=== PATIENT | female | born 2005 | race Two or more races ===

== ENCOUNTER 2024-04-02 16:38 | Emergency (ER) | payer MEDICAID, SELFPAY ==
[2024-04-02 16:43] VITALS: BP 106/74; PULSE 68; TEMP 36.6; O2SAT 98; BMI 18.7
--- NOTE | 2024-04-02 16:53 | ED.GENADUL1 ---
HPI HPI - General Adult General Chief complaint: Extremity Problem, Nontraumatic Stated complaint: SHRUNKEN BREAST AN NAUSEA Time Seen by Provider: 04/02/24 16:46 Source: patient Mode of arrival: walk-in Limitations: no limitations History of Present Illness HPI narrative: Patient is a 18-year-old female who presents to the ER with her boyfriend with concerns of her left breast appearing smaller than her right, she has noticed a currency exchange specialist the past 2 days. She denies any breast pain or drainage or discharge. She denies any rash. She recently had Implanon control removed from her skin a month and a half ago. Her last menstrual cycle ended on March 16. Patient has been sexually active. She denies any chest pain or shortness of breath. Patient admits to increased fatigue. She denies any spontaneous or skin changes to her breast. Associated symptoms: Reports other (fatigue, had swelling in her right anterior cervical lymph node chain last week that resolved); Denies fever/chills Treatments prior to arrival: Reports none Related Data Previous Rx's ?Medication ?Instructions ?Recorded cephalexin 500 mg capsule 500 mg PO BID 3 days #6 caps 04/02/24 Allergies Allergy/AdvReac Type Severity Reaction Status Date / Time No Known Drug Allergies Allergy Verified 04/02/24 16:46 Opioid HPI Opioid Management Most Recent Opioid Data: Last Pain Scale 0 04/02/24 16:47 Review of Systems ROS Constitutional Reports: fatigue; Denies: fever, chills or change in weight Eyes Denies: change in vision or blurry vision Ears, nose, mouth, and throat Reports: other (+ swelling right anterior neck, resolved. ); Denies: throat pain, neck pain or throat swelling Cardiovascular Denies: chest pain or palpitations Respiratory Denies: shortness of breath, cough or wheezing Gastrointestinal Denies: abdominal pain, nausea, vomiting or constipation Genitourinary Denies: painful urination, urinary frequency, urinary urgency or blood in urine Musculoskeletal Denies: back pain, neck pain, extremity pain, extremity swelling or joint pain Integumentary/Breast Denies: rash, itching, redness or skin pain Neurological Denies: headache or numbness in extremities Psychiatric Denies: anxiety, mood swings or panic attacks Endocrine Denies: excessive urination Hematologic/Lymphatic Denies: easy bruising Allergic/Immunologic Denies: hives, throat swelling or tongue swelling Exam Narrative Exam Narrative: Nurses notes and vital signs reviewed and patient is not hypoxic. General: The patient appears well and in no apparent distress. Patient is resting comfortably on cart. Skin: Warm, dry, no pallor noted. No evidence of rash Head: Normocephalic, atraumatic Neck: Supple, trachea mid-line, no tenderness, no lymphadenopathy, patient notes swelling in her right anterior neck last week that has since resolved. Eye: Pupils are equal, round and reactive to light, EOMI Ears, Nose, Mouth, and Throat: TM are clear, normal light reflex, oral mucosa is moist, no posterior oropharynx erythema or hypertrophy, uvula is mid-line Cardiovascular: Regular Rate and Rhythm Respiratory: Patient is in no distress, no accessory muscle use, lungs are clear to auscultation, no wheezing, rales or rhonchi. Chest Wall: no tenderness, patient self reports breast nontender to palpation. Visual inspection not performed as patient denies rash, only notes size discrepancy recently appreciated 2 days ago that the left breast appears smaller than it did previously when comparison for symmetry. She denies the right breast appearing larger. States she notices a difference when wearing her bra. Back: non-tender, no CVA tenderness Musculoskeletal: normal ROM, no tenderness, no swelling GI: Normal bowel sounds, no tenderness to palpation, no masses appreciated. No rebound, guarding, or rigidity noted. Neurological: A&O x4 Psychiatric: Cooperative Constitutional Vital Signs, click to edit/add: Last Vital Signs Temp 97.9 F 04/02/24 16:43 Pulse 68 04/02/24 16:43 Resp 18 04/02/24 16:43 BP 106/74 04/02/24 16:43 Pulse Ox 98 04/02/24 16:43 O2 Del Method Room Air 04/02/24 16:43 Course Vital Signs Vital signs: Vital Signs Temperature 97.9 F 04/02/24 16:43 Pulse Rate 68 04/02/24 16:43 Respiratory Rate 18 04/02/24 16:43 Blood Pressure 106/74 04/02/24 16:43 Pulse Oximetry 98 04/02/24 16:43 Oxygen Delivery Method Room Air 04/02/24 16:43 Temperature 97.9 F 04/02/24 16:43 Pulse Rate 68 04/02/24 16:43 Respiratory Rate 18 04/02/24 16:43 Blood Pressure 106/74 04/02/24 16:43 Pulse Oximetry 98 04/02/24 16:43 Oxygen Delivery Method Room Air 04/02/24 16:43 Medical Decision Making MDM Narrative Medical decision making narrative: Patient presents with concerns of left breast appearing smaller than her right. She denies pain or discomfort, denies fever. She recently stopped a implanted control and has had 1 period since this occurred. Patient notes she has also been fatigued. She denies any chest pain or shortness of breath. Patient had solitary lymph node swelling in her neck that is since resolved, there is no supra or infra clavicular lymphadenopathy. Patient appears in no distress. She denies any visual disturbance or .. Discussed laboratory studies, patient noted to have some anemia. She is not currently on her menstrual cycle, we discussed diet at the bedside and she may be missing iron rich foods. She will focus on these recommend prompt follow-up with family doctor to get additional outpatient evaluation consider iron supplementation. Patient will be placed on Keflex as she does note some urgency and frequency with urination but denies pain. She denies any pelvic pain or vaginal discharge. We discussed that the urine culture is pending but may be contaminated. Patient agreeable to antibiotic as she does not have immediate follow-up plans with PCP. We discussed her test being negative and mono and thyroid within normal limits. We discussed her concern with breast asymmetry with her left breast appearing smaller and she will follow this up with her family doctor/[employer]. The patient is to followup with primary care physician in next 2-3 days or to return to the emergency department should any of the signs or symptoms worsen or new symptoms develop. Patient had questions answered. The patient agrees with the following Diagnosis and Treatment plan and the patient will be discharged home. [employer]PER[employer] VISIT, PHYSICIAN ATTESTATION: Based on the medical record the care appears appropriate. ? Lab Data Labs: Lab Results 04/02/24 Range/Units 16:50 WBC 9.0 (4.0-11.0) 10^3/uL RBC 4.51 (4.20-5.40) 10^6/uL Hgb 10.8 L (12.0-16.0) g/dL Hct 32.2 L (36.0-48.0) % MCV 71.4 L (81.0-99.0) fL MCH 23.9 L (26.7-34.0) pg MCHC 33.5 (29.9-35.2) g/dL RDW 16.0 H (11.0-15.0) % Plt Count 357 (150-450) 10^3/uL MPV 10.6 (9.5-13.5) fL Neut % (Auto) 63.0 (43.0-75.0) % Lymph % (Auto) 28.8 (20.5-60.0) % [place] % (Auto) 6.7 (1.7-12.0) % Eos % (Auto) 0.7 L (0.9-7.0) % Baso % (Auto) 0.7 (0.2-2.0) % Neut # (Auto) 5.7 (1.4-6.5) 10^3/uL Lymph # (Auto) 2.6 (1.2-3.8) 10^3/uL [place] # (Auto) 0.6 (0.3-0.8) 10^3/uL Eos # (Auto) 0.1 (0.0-0.7) 10^3/uL Baso # (Auto) 0.1 (0.0-0.1) 10^3/uL Abs Immat Gran (auto) 0.01 (0.00-0.03) 10^3/uL Imm/Tot Granulo (auto) 0.1 (0.0-0.5) % TSH & Free T4 Interp 2.041 (0.358-3.740) uIU/mL HCG, Quant <1 mIU/mL Urine Color Lt. yellow (YELLOW) Urine Clarity Clear (CLEAR) Urine pH 6.5 (5.0-9.0) Ur Specific [place] 1.020 (1.005-1.025) Urine Protein Negative (NEG/TRACE) mg/dL Urine Glucose (UA) Negative (NEGATIVE) mg/dL Urine Ketones Negative (NEGATIVE) mg/dL Urine Occult Blood Negative (NEGATIVE) Urine Nitrite Negative (NEGATIVE) Urine Bilirubin Negative (NEGATIVE) Urine Urobilinogen 0.2 (0.2-1.0) EU/dL Ur Leukocyte Esterase Trace A (NEGATIVE) Urine RBC 2-5 A (0-2) #/HPF Urine WBC 2-5 A (NONE SEEN) #/HPF Ur Squamous Epith Cells Few A (NONE/RARE) #/LPF Urine Crystals None seen (None Seen) #/HPF Urine Bacteria Small A (NONE SEEN) #/HPF Urine Casts None seen (NONE SEEN) #/LPF Urine Mucus Trace A (NONE SEEN) Ur Culture Indicated? Yes Monoscreen Negative (NEGATIVE) Discharge Plan Discharge Stand Alone Forms: Portal Instructions Chief Complaint: Extremity Problem, Nontraumatic Clinical Impression: Anemia, UTI (urinary tract infection), Concern about appearance of breast Patient Disposition: Home, Self-Care Time of Disposition Decision: 17:51 Condition: Good Prescriptions / Home Meds: New cephalexin 500 mg capsule 500 mg PO BID 3 Days Qty: 6 0RF Print Language: Upper Sorbian Instructions: Urinary Tract Infection in Women (DC), Iron Rich Diet (ED), Anemia (ED) Referrals: Randall Mitchell DO [Physician] - 1 week Sarah Lugo NP [Nurse Practitioner] - As soon as possible CARMELINA MANZANO [Nurse Practitioner] - As soon as possible
[2024-04-02 17:08] LABS: Basophils Absolute Auto 0.1 10^3/uL (0.0-0.1); Basophils Percent Auto 0.7 % (0.2-2.0); Eosinophils Absolute Auto 0.1 10^3/uL (0.0-0.7); Eosinophils Percent Auto 0.7 % (0.9-7.0); Hematocrit 32.2 % (36.0-48.0); Hemoglobin 10.8 g/dL (12.0-16.0); Immature Granulocytes Abs Auto 0.01 10^3/uL (0.00-0.03); Immature Granulocytes Pct Auto 0.1 % (0.0-0.5); Lymphocytes Absolute Auto 2.6 10^3/uL (1.2-3.8); Lymphocytes Percent Auto 28.8 % (20.5-60.0); Mean Corpuscular HGB Conc 33.5 g/dL (29.9-35.2); Mean Corpuscular Hemoglobin 23.9 pg (26.7-34.0); Mean Corpuscular Volume 71.4 fL (81.0-99.0); Mean Platelet Volume 10.6 fL (9.5-13.5); Monocytes Absolute Auto 0.6 10^3/uL (0.3-0.8); Monocytes Percent Auto 6.7 % (1.7-12.0); Neutrophils Absolute Auto 5.7 10^3/uL (1.4-6.5); Platelet Count 357 10^3/uL (150-450); Red Blood Count 4.51 10^6/uL (4.20-5.40)
[2024-04-02 17:09] LABS: Bilirubin Urine NEGATIVE (NEGATIVE); Blood Urine NEGATIVE (NEGATIVE); Clarity Urine CLEAR (CLEAR); Color Urine LT. YELLOW (YELLOW); Glucose Urine UA NEGATIVE (NEGATIVE); Ketones Urine NEGATIVE (NEGATIVE); Leukocyte Esterase Urine TRACE (NEGATIVE); Nitrite Urine NEGATIVE (NEGATIVE); Protein Urine NEGATIVE (NEG/TRACE); Urine Microscopic Indicated YES; Urobilinogen Urine 0.2 EU/dL (0.2-1.0); pH Urine 6.5 (5.0-9.0)
[2024-04-02 17:18] LABS: Internal Control Within Normal Limits; Mono Screen NEGATIVE (NEGATIVE)
[2024-04-02 17:21] LABS: Bacteria Urine SMALL #/HPF (NONE SEEN); Cast Seen? NONE SEEN #/LPF (NONE SEEN); Crystals Seen? None Seen #/HPF (None Seen); Mucus Urine TRACE (NONE SEEN); Squamous Epithelial Cell Urine FEW #/LPF (NONE/RARE)
[2024-04-02 17:22] LABS: Urine Culture Indicated YES
[2024-04-02 17:33] LABS: HCG Quantitative <1 mIU/mL; TSH W/ REFLEX FT4 2.041 uIU/mL (0.358-3.740)
[2024-04-02] MEDS: CEPHALEXIN 500 MG CAPSULE PO (17:54)
[2024-04-02 18:00] VITALS: BP 124/72; PULSE 61; O2SAT 100
== END 2024-04-02 18:01 | disposition home or self-care (01) ==
PROVIDERS: Personal Emergency Response Attendant; Emergency Provider Emergency Medicine
DX: N39.0 Urinary tract infection, site not specified (principal); D64.9 Anemia, unspecified; N64.89 Other specified disorders of breast
CPT/HCPCS: 36415; 81001; 84443; 84702; 85025; 86308; 87086; 99283

== ENCOUNTER 2024-04-07 09:36 | Outpatient (OUT) | payer MEDICAID, SELFPAY ==
[2024-04-07 10:08] LABS: Hemoglobin 11.6 g/dL (12.0-16.0); Mean Corpuscular HGB Conc 32.2 g/dL (29.9-35.2); Mean Corpuscular Hemoglobin 23.6 pg (26.7-34.0); Mean Corpuscular Volume 73.3 fL (81.0-99.0); Mean Platelet Volume 10.8 fL (9.5-13.5); Platelet Count 349 10^3/uL (150-450); Red Blood Count 4.91 10^6/uL (4.20-5.40); Red Cell Distribution Width 17.3 % (11.0-15.0)
[2024-04-07 10:22] LABS: Percent Iron Saturation 5.9 %
[2024-04-08 06:09] LABS: Vitamin B12 319 pg/mL (232-1245)
[2024-04-08 07:08] LABS: Vitamin D, 25-Hydroxy 34.7 ng/mL (30.0-100.0)
== END 2024-04-07 09:37 | disposition home or self-care (01) ==
LOC: LAB 09:36
PROVIDERS: PCP Nurse Practitioner; Visit Provider Nurse Practitioner
DX: D64.9 Anemia, unspecified (principal); R53.83 Other fatigue
CPT/HCPCS: 36415; 82306; 82607; 82746; 83540; 83550; 85027

== ENCOUNTER 2024-04-13 17:43 | Outpatient (REF) | payer MEDICAID, SELFPAY ==
--- OUTSIDE RECORDS SUMMARY | 2024-04-13 17:49 | XMS_ITS | CCD ---
Author Organization [facility] MEAT STOCK CLERK [facility] Care Team Providers [employer] Sales Agent Name Role Phone None, DO Doctor Primary Care Provider UnavailIMANI Herrmann Attending Provider [phone] Provider, [place] Attending Provider UnavailPETROS Cardenas Attending Provider PETROS Pace Attending Provider [phone] ARAM Shepherd Attending Provider PILO Hayes Attending Provider [phone] Unavailable Primary Care Provider UnavailNUNU Morrison Attending Unavailable None, DO Doctor Primary Care Provider UnavailDO Gertrudis Ware Emergency Provider [phone] Unavailable Primary Care Provider UnavailDO Gertrudis Ware Attending Provider [phone] MD Mak Stahl Attending Provider None, DO Doctor Primary Care Provider UnavailDO Gertrudis Ware Attending Provider DO Gertrudis Bates Emergency Provider MD Mak Stahl Attending Provider Provider, [place] Attending Provider UnavailMak Roper Attending Unavailable Yoana Martinez Attending Unavailable Gertrudis Bates Attending Unavailable Mak Stahl Attending Unavailable Yoana Martinez Attending Unavailable TAD LOPEZ~[id number] MOHAMUD Attending Unavailable TAD LOPEZ~[id number] MOHAMUD Referring Unavailable TAD LOPEZ~[id number] MOHAMUD Attending Unavailable LUCÍA DIAMANTE, DIAMANTE~[id number] MINGUS Attending Unavailable LUCÍA OLGA BOBBYATT~[id number] MINGUS Referring Unavailable VIRGIN RASHEED, RASHEED~[id number] VIRGIN Attending Unavailable VIRGIN RASHEED, RASHEED~[id number] VIRGIN Referring Unavailable VIRGIN RASHEED, RASHEED~[id number] VIRGIN Attending Unavailable VIRGIN RASHEED, RASHEED~[id number] VIRGIN Referring Unavailable LUIS ANGEL OLIVAS Attending Unavailable LUCÍA DIAMANTE, DIAMANTE~[id number] MINDEEJAY Attending Unavailable Medications Current Medications Medication Drug Class(es) Dates Sig (Normalized) Sig (Original) dextromethorphan hydrobromide 15 mg / guaiFENesin 400 mg / pseudoephedrine hydrochloride 60 mg oral tablet (1 source) alpha-Adrenergic Agonist, Uncompetitive C-zuptmx-M-aspartat e Receptor Antagonist, Sigma-1 Agonist Start: 01-12-2024 take 1 tablet by mouth every six hours Pseudoephedrine -Dm-Guaifenesin (Capmist Dm) 60-15-400 mg tablet Active 1 TAB ORAL Q6H January 12, 2024 12:00am Alpha (No Known Home Meds) (3 sources) Start: 02-20-2022 Alpha (No Known Home Meds) Active February 19, 2022 11:00pm Start: 02-20-2022 Alpha (No Kn own Home Meds) Active February 20, 2022 12:00am Completed/Discontinued Medications Medication Drug Class(es) Dates Sig (Normalized) Sig (Original) acetaminophen 500 mg oral capsule (5 sources) Start: 02-20-2022 take 500 mg by mouth every six hours Acetaminophen Active 500 MG ORAL Q6H February 20, 2022 12:00am Start: 02-20-2022 End: 10-29-2023 take 500 mg by mouth every six hours Acetaminophen Discontinued 500 MG ORAL Q6H February 20, 2022 12:00am October 29, 2023 7:05pm amoxicillin 500 mg oral capsule (5 sources) Penicillin-class Antibacterial Start: 09-28-2021 End: 11-03-2021 take 500 mg by mouth twice daily Amoxicillin Discontinued 500 MG ORAL TWICE A DAY 02 07September 28, 2021 1:00am November 03, 2021 3:55pm Start: 09-28-2021 End: 11-03-2021 take 500 mg by mouth twice daily Amoxicillin Discontinued 500 MG ORAL TWICE A DAY 20 September 28, 2021 1:00am November 03, 2021 3:55pm brompheniramine maleate 0.4 mg/ml / dextromethorphan hydrobromide 2 mg/ml / pseudoephedrine hydrochloride 6 mg/ml oral solution (3 sources) alpha-Adrenergic Agonist, Uncompetitive L-vgequq-M-aspartate Receptor Antagonist, Sigma-1 Agonist Start: 09-28-2021 End: 11-03-2021 take 1 mL by mouth every six hours Dcxrrcrtwspkeuw-Gplgrbtiw-Of (Bromfed Dm) 2-30-10 mg/5 mL syrup Discontinued 10 ML ORAL Q6H 473 September 28, 2021 1:00am November 03, 2021 3:56pm Brompheniramine-Ps eudoeph-Dm (Bromfed Dm) 2-30-10 mg/5 mL syrup (2 sources) Start: 09-28-2021 End: 11-03-2021 take 1 mL by mouth every six hours Tuhtfnsuksguybi-Hlcdaqsjc-Hw (Bromfed Dm) 2-30-10 mg/5 mL syrup Discontinued 10 ML ORAL Q6H 473 September 28, 2021 1:00am November 03, 2021 3:56pm cephalexin 500 mg oral capsule (5 sources) Cephalosporin Antibacterial Start: 11-03-2021 End: 11-26-2021 take 500 mg by mouth four times daily Cephalexin Discontinued 500 MG ORAL FOUR TIMES DAILY 40 November 03, 2021 1:00am November 26, 2021 1:34pm Start: 11-03-2021 End: 11-26-2021 take 500 mg by mouth four times daily Cephalexin Discontinued 500 MG ORAL FOUR TIMES DAILY 40 November 03, 2021 1:00am November 26, 2021 1:34pm colistin 3 mg/ml / hydrocortisone 10 mg/ml / neomycin 3.3 mg/ml / thonzonium bromide 0.5 mg/ml otic suspension (3 sources) Aminoglycoside Antibacterial, Corticosteroid Start: 06-05-2020 End: 09-28-2021 Ssacoilz-Zgjlkq-St-Thonzoniu m (Cortisporin-Tc) 3.3-3-10-0.5 mg/mL drops,suspension Discontinued 3 DROP EAR-RIGHT FOUR TIMES DAILY June 05, 2020 12:00am September 28, 2021 3:22pm doxycycline hyclate 100 mg oral capsule (5 sources) Tetracycline-clas s Drug Start: 06-05-2020 End: 09-28-2021 take 100 mg by mouth twice daily Doxycycline Hyclate Discontinued 100 MG ORAL TWICE A DAY 02 07June 05, 2020 12:00am September 28, 2021 3:22pm Start: 06-05-2020 End: 09-28-2021 take 100 mg by mouth twice daily Doxycycline Hyclate Discontinued 100 MG ORAL TWICE A DAY 02 07June 05, 2020 12:00am September 28, 2021 3:22pm Norgestimate-Ethinyl Estradiol (3 sources) Progestin, Estrogen Start: 01-20-2022 End: 02-20-2022 take 1 tablet by mouth once daily Norgestimate-Ethinyl Estradiol Discontinued TAB ORAL DAILY January 20, 2022 12:00am February 20, 2022 2:16pm Start: 01-20-2022 End: 02-20-2022 take 1 tablet by mouth once daily Norgestimate-Ethinyl Estradiol Discontinued TAB ORAL DAILY January 19, 2022 11:00pm February 20, 2022 1:16pm hydrocortisone 10 mg/ml topical cream (5 sources) Corticosteroid Start: 11-26-2021 End: 01-20-2022 Hydrocortisone (Anti-Itch (Hc)) 1 % cream Discontinued 1 APPLIC TOPICAL Bedtime 28.35 November 26, 2021 12:00am January 20, 2022 11:10am Start: 11-26-2021 End: 01-20-2022 Hydrocortisone (Anti-Itch (H c)) 1 % cream Discontinued 1 APPLIC TOPICAL Bedtime 28.35 November 26, 2021 12:00am January 20, 2022 11:10am ibuprofen 400 mg oral tablet (5 sources) Nonsteroidal Anti-inflammatory Drug Start: 02-20-2022 End: 10-29-2023 take 400 mg by mouth every eight hours Ibuprofen Discontinued 400 MG ORAL Q8H February 20, 2022 12:00am October 29, 2023 7:05pm 12 hr loratadine 5 mg / pseudoephedrine sulfate 120 mg extended release oral tablet (2 sources) alpha-Adrenergic Agonist Start: 10-29-2023 End: 01-12-2024 take 1 tablet by mouth every twelve hours, then take 1 tablet by mouth every twelve hours Loratadine-Pseudo ephedrine (Loratadine-D) 5-120 mg tablet extended release 12 hr Discontinued 1 TAB ORAL Q12H October 29, 2023 1:00am January 12, 2024 2:41pm Hqqyinju-Pdaapp-Et-T honzonium (Cortisporin-Tc) 3.3-3-10-0.5 mg/mL drops,suspension (2 sources) Start: 06-05-2020 End: 09-28-2021 Gkfcazte-Lfdgze-N c-Thonzonium (Cortisporin-Tc) 3.3-3-10-0.5 mg/mL drops,suspension Discontinued 3 DROP EAR-RIGHT FOUR TIMES DAILY June 05, 2020 12:00am September 28, 2021 3:22pm Norgestimate-Ethinyl Estradiol (2 sources) Start: 01-20-2022 End: 02-20-2022 take 1 tablet by mouth once daily Norgestimate-Ethi nyl Estradiol Discontinued TAB ORAL DAILY January 20, 2022 12:00am February 20, 2022 2:16pm ondansetron 4 mg disintegrating oral tablet (11 sources) Serotonin-3 Receptor Antagonist Start: 02-20-2022 take 4 mg by mouth every eight hours Ondansetron Active 4 MG ORAL Q8H 14 February 20, 2022 12:00am Start: 02-20-2022 End: 10-29-2023 take 4 mg by mouth every eight hours Ondansetron Discontinued 4 MG ORAL Q8H 14 February 20, 2022 12:00am October 29, 2023 7:06pm Start: 01-20-2022 End: 02-20-2022 take 4 mg by mouth every six hours Ondansetron Discontinued 4 MG ORAL Q6H January 20, 2022 12:00am February 20, 2022 2:16pm Start: 01-20-2022 End: 02-20-2022 take 4 mg by mouth every six hours Ondansetron Discontinued 4 MG ORAL Q6H January 20, 2022 12:00am February 20, 2022 2:16pm phenol 14 mg/ml mucosal spra y (10 sources) Start: 02-20-2022 End: 10-29-2023 Phenol (Chloraseptic Throat Burr) 1.4 % aerosol,spray Discontinued 3 SPRAY MUCOUS MEM Q4H February 20, 2022 12:00am October 29, 2023 7:07pm Start: 02-20-2022 Phenol (Chlora septic Throat Burr) 1.4 % aerosol,spray Active 3 SPRAY MUCOUS MEM Q4H February 20, 2022 12:00am Start: 09-28-2021 End: 11-03-2021 Phenol (Chloraseptic Throat Burr) 1.4 % aerosol,spray Discontinued 4 SPRAY MUCOUS MEM Q4H September 28, 2021 1:00am November 03, 2021 3:56pm Start: 09-28-2021 End: 11-03-2021 Phenol (Chloraseptic Throat Burr) 1.4 % aerosol,spray Discontinued 4 SPRAY MUCOUS MEM Q4H September 28, 2021 1:00am November 03, 2021 3:56pm terbinafine 250 mg oral tablet (5 sources) Allylamine Antifungal Start: 11-26-2021 End: 02-20-2022 take 250 mg by mouth three times daily Terbinafine Hcl Discontinued 250 MG ORAL THREE TIMES A DAY November 26, 2021 12:00am February 20, 2022 2:16pm Problems Active Problems Problem Classification Problem Date Documented Da te Episodic/Chronic Acquired foot deformities (2 sources) Bunionette of right foot; Translations: [Bunion] Episodic Alcohol-related disorders (1 source) Alcohol abuse with intoxication, unspecified; Translations: [Alcohol abuse with intoxication, unspecified] Onset: 09-17-2023 Chronic Allergic reactions (7 sources) Inflammatory dermatosis; Translations: [Dermatitis, unspecified] Episodic Fever of unknown origin (2 sources) Fever, unspecified; Translations: [Fever, unspecified] Episodic Immunizations and screening for infectious disease (5 sources) Suspected disease caused by 2019-nCoV; Translations: [Encounter by telehealth for suspected COVID-19] 2020 Episodic Intestinal infection (7 sources) Viral gastroenteritis; Translations: [Viral intestinal infection, unspecified] Episodic Other lower respiratory disease (2 sources) Cough; Translations: [New onset cough] Episodic Other nervous system disorders (2 sources) Tremor, unspecified; Translations: [Abnormal involuntary movements] Episodic Other skin disorders (5 sources) Ingrowing toenail (excluding great toe); Translations: [Ingrowing nail] 11-03-2021 Episodic Other skin disorders (2 sources) Ingrowing nail; Translations: [Ingrowing nail] Episodic Residual codes; unclassified (1 source) Chill; Translations: [Chills (without fever)] 09-28-2023 Episodic Skin and subcutaneous tissue infections (7 sources) Cellulitis; Translations: [Cellulitis, unspecified] Episodic Unclassified (1 source) Low back pain, unspecified; Translations: [Low back pain, unspecified] Onset: 02-04-2024 Past or Other Problems Problem Classification Problem Date Documented Date Episodic/Chronic Administrative/social admission (1 source) Special examination status; Translations: [Encounter for examination for participation in sport] Onset: 02-03-2017 02-03-2017 Episodic Diseases of mouth; excluding dental (1 source) Sialoadenitis, unspecified; Translations: [Sialoadenitis, unspecified] Onset: 07-03-2023 Episodic Disorders of teeth and jaw (1 source) Periapical abscess without sinus; Translations: [Periapical abscess without sinus] Onset: 11-19-2023 Episodic Genitourinary symptoms and ill-defined conditions (1 source) Dysuria; Translations: [Dysuria] Onset: 11-19-2023 Episodic Nausea and vomiting (4 sources) Nausea with vomiting, unspecified; Translations: [Nausea with vomiting] Onset: 09-28-2023 Episodic Other upper respiratory disease (1 source) Nasal congestion; Translations: [Nasal congestion] Onset: 10-29-2023 Episodic Other upper respiratory infections (14 sources) Acute upper respiratory infection, unspecified; Translations: [Acute upper respiratory infections of unspecified site] Onset: 07-03-2023 Episodic Residual codes; unclassified (1 source) Chills (without fever); Translations: [Chills (without fever)] Onset: 09-28-2023 Episodic Urinary tract infections (1 source) Acute cystitis without hematuria; Translations: [Acute cystitis without hematuria] Onset: 11-19-2023 Episodic Viral infection (3 sources) Viral infection, unspecified; Translations: [Unspecified viral infection] Onset: 09-28-2023 Episodic Results Test Name Value Interpretation Reference Range Facility Rapid PMPP-ExK-5tw 4 SARS-CoV-2 (COVID-19) RNA KEITH+probe Ql (Unsp spec) Negative Normal Negative [facility] Comment on above: Order Comment: Speci men Type: Unknown Relevant Clinical Information: body aches sore throat and cough Ordering Facility: [facility] Address: , , Result Comment: The sensitivity of the assay is dependent on the quality of the specimen collected for testing. A dry swab must be used for testing; swabs placed in viral transport media cannot be used. The assay is performed on the [employer] instrument utilizing isothermal nucleic acid amplification technology. Results are for the identification of severe acute respiratory syndrome coronavirus 2 nucleic acid, SARS-CoV-2 RNA, which is generally detectable in respiratory samples during the acute phase of infection. Positive results are indicative of the presence of SARS-CoV-2 RNA; clinical correlation with patient history and other diagnostic information is necessary to determine patient infection status. Positive results do not exclude the possibility of co-infection with other viral or bacterial infections. Negative results should be treated as presumptive and, if inconsistent with clinical signs and symptoms or necessary for patient management, should be tested with different molecular tests. This test has been authorized by FDA under an Emergency Use Authorization (EUA). This test is only authorized for the duration of time the declaration that circumstances exist justifying the authorization of the emergency use of in vitro diagnostic tests for detection of SARS-CoV-2 virus and/or diagnosis of COVID-19 infection under section 564(b)(1) of the Act, 21 U.S.C. 360bbb-3(b)(1), unless the authorization is terminated or revoked sooner. Performed By: #### P OCCOV #### [facility] CLIA [id number] Rapid Strep A Screen POCon 0 01-12-2024 S. pyogenes Ag IA Ql (Unsp spec) Negative Normal Negative [facility] Comment on above: Order Comment: Speci men Type: Unknown Relevant Clinical Information: body aches sore throat and cough Ordering Facility: [facility] Address: , , Performed By: #### P OCSTREP #### [facility] CLIA [id number] Urgent Care Noteon 4 Urgent Care Note [facility]ly [facility], [facility] C[address] [place] [address] Urgent Care Note Signed Patient: Mellisa Eason MR#: [id number] : 2005 Acct: [id number] Age/Sex: 18 / F Loc: [facility]. Date of Service: 01/12/[address]: Yoana Martinez CNP cc: None,Doctor D.O. Intake Vital Signs ([facility]) 01/12/24 14:41 Height 1.63 m Weight 39.2 kg BMI 14.8 BP 123/78 Respiration 18 Pulse 88 Temp 98.2 F Temp Source Oral Pulse Oximetry (%) 100 Oxygen Delivery Method Room Air Intake Visit Reasons: body aches sore throat and cough Is patient in acute pain: Yes (Body aches and sore throat) Allergies No Known Allergies Allergy (Verified 01/12/24 14:41) Medications - Last Reconciled 01/12/24 by Betzaida Friend LPN History History 0 Elective abortions Para Spontaneous abortions Hx # Term Pregnancies Ectopic pregnancies Hx # Pregnancies Multiple births Specific Travel Risk - COVID-19 Travel from high risk country; contact w/ high risk person(s): No COVID-19 Symptoms: Yes COVID-19 Symptoms experienced: Fatigue, Muscle/Body Aches, Sore Throat, Congestion/Runny Nose and Headache PHQ-2/9 . Over the last 2 weeks, how often have you been bothered by any of the following problems? 1. Little interest or pleasure in doing things: not at all 2. Feeling down, depressed, or hopeless: not at all PHQ-2: Total score: 0 Depression Screening Performed-Adult (age 14 and older): Yes Depression Screening Results (Adult): negative 9. Thoughts that you would be better off or of hurting yourself in some way: not at all 0-4 None-Minimal, 5-9 Mild, 10-14 Moderate, 15-19 Moderately Severe, 20-27 Severe Source: Developed by Drs. Zachary Lozada, Ana Lynne, Kadeem Garcia and colleagues, with an educational aurea from [employer]. .. Do you need a note to return to daycare/school/sports /work: No Nurse's Note Nurse's Note: Patient presents with c/o body aches, sore throat, congestion and fatigue x3 days. No home treatment. HPI Urgent Care HPI COVID-19 Testing ordered at today's visit? (Not Rapid/POC testing in clinic): No HPI - URI/Sore Throat General Source: patient Mode of arrival: ambulatory Limitations: no limitations History of Present Illness MD elicited complaint: fever, sore throat, rhinorrhea and nasal congestion Onset duration: day(s) ago (3 days) Consistency: intermittent Severity: mild Description of mucous: clear Able to tolerate fluids by mouth: is able to tolerate fluids by mouth Exacerbating factors: include nothing Relieving factors: include nothing Context: notes sick contacts Associated symptoms: reports myalgias and other (fatigue) Treatments prior to arrival: reports using cold medicine Related Data Previous Rx's Medication Instructions Recorded pseudoephedrine 60 mg-DM 15 1 tab ORAL Q6H PRN congestion #20 01/12/24 mg-guaifenesin 400 mg tablet tabs (Capmist DM) Allergies Allergy/AdvReac Type Severity Reaction Status Date / Time No Known Allergies Allergy Verified 01/12/24 14:41 PFSH PFSH Medical History Dermatitis Cellulitis Ingrown nail of fifth toe No significant past medical history Surgical History No significant past surgical history Social History Advance Directives: No Advance Directives Information Provided: No Advance Directives on File: No Smoking Status: Never smoker Former alcohol user?: No How often do you have a drink containing alcohol: never Non prescribed substance use: denies use Travel outside of [place] in last 30 days?: No Are you able to complete the screen?: No (pt denied) What is your living situation today?: I have a steady place to live Within the past 12 months, you worried that your food would run out before you got money to buy more.: Never true Within the past 12 months, the food you bought just didn't last and you didn't have money to get more.: Never true In the past 12 months, has lack of reliable transportation kept you from medical appointments, meetings, work, or from getting things needed for daily living?: No In the past 12 months has the electric, gas, oil, or water company threatened to shut off services in your home?: No How often does anyone, including family and friends, physically hurt you?: Never How often does anyone, including family and friends, insult or talk down to you?: Never How often does anyone, including family and friends, threaten you with harm?: Never How often does anyone, including family and friends, scream or curse at you?: Never Safety Total: 4 (Reviewed 01/12/24 @ 15:47 (more content not included)... Normal [facility] URINE CULTUREon 11-21-2023 Bacteria identified Cx Nom (U) No growth. Normal [facility] Comment on above: Order Comment: NO KN OWN ALLERGIES Performed By: #### L [id number] #### [facility] [address] [place], [place] [id number] #### [id number] #### [facility] [address] [place] [id number] UA w/ Culture reflexon 11-18 UR BACTERIA None Seen Normal NONE SEEN [facility] Comment on above: Order Comment: NO KN OWN ALLERGIES Performed By: #### L [id number] #### [facility] [address] [place] [id number] #### [id number] #### [facility] [address] [place] [address] UR BILIRUBIN Negative Normal NEGATIVE [facility] Comment on above: Order Comment: NO KN OWN ALLERGIES Performed By: #### L [id number] #### [facility] [address] [place] [id number] #### [id number] #### [facility] [address] [place] [address] 08161 UR BLOOD Negative Normal NEGATIVE [facility] Comment on above: Order Comment: NO KN OWN ALLERGIES Performed By: #### L [id number] #### [facility] [address], [place] #### [id number] #### [facility] [address] [place] [address] 15[address] UR CLARITY Turbid Abnormal CLEAR [facility] Comment on above: Order Comment: NO KN OWN ALLERGIES Performed By: #### L [id number] #### [facility] [address], [place] #### [id number] #### [facility] [address] [place] [address] [id number] UR COLOR Yellow Normal YELLOW [facility] Comment on above: Order Comment: NO KN OWN ALLERGIES Performed By: #### L [id number] #### [facility] [address] [place] [address] #### [id number] #### [facility] [address] [place] [address] [id number] UR GLUCOSE Negative Normal NEGATIVE [facility] Comment on above: Order Comment: NO KN OWN ALLERGIES Performed By: #### L [id number] #### [facility] [address] [place] [address] #### [id number] #### [facility] [address] [place] [address]000 UR KETONE 20 mg/dL Abnormal NEGATIVE [facility] Comment on above: Order Comment: NO KN OWN ALLERGIES Performed By: #### L [id number] #### [facility] [address], [place] #### [id number] #### [facility] [address] [place] [address] 24191 UR LEUKOCYTE 500 Normal NEGATIVE [facility] Comment on above: Order Comment: NO KN OWN ALLERGIES Performed By: #### L [id number] #### [facility] [address], [place] #### [id number] #### [facility] [address] [place] [address] UR MUCOUS Rare Normal NONE SEEN [facility] Comment on above: Order Comment: NO KN OWN ALLERGIES Performed By: #### L [id number] #### [facility] [address] [place] [address] #### [id number] #### [facility] [address] [place] [id number] UR NITRITE Negative Normal NEGATIVE [facility] Comment on above: Order Comment: NO KN OWN ALLERGIES Performed By: #### L [id number] #### [facility] [address] [place] [address] #### [id number] #### [place] [address] UR NON-SQUAMOUS EPI < 1 Normal NONE SEEN [facility] Comment on above: Order Comment: NO KN OWN ALLERGIES Performed By: #### L [id number] #### [facility] [address] [place] [address] #### [id number] #### [place] [address] UR PH 5.0 Normal 5.0-9.0 [facility] Comment on above: Order Comment: NO KN OWN ALLERGIES Performed By: #### L [id number] #### [facility] [address] [place] [address] #### [id number] #### [facility] [address] [place] [address] 488[address] UR PROTEIN Trace Abnormal NEGATIVE [facility] Comment on above: Order Comment: NO KN OWN ALLERGIES Performed By: #### L [id number] #### [facility] [address] [place] [address] #### [id number] #### [facility] [address] [place] [address] [id number] UR RBC 1 - 3 Normal 1-3 [facility] Comment on above: Order Comment: NO KN OWN ALLERGIES Performed By: #### L [id number] #### [facility] [address] [place] [address] #### [id number] #### [facility] [address] [place] [address] UR SP GRAVITY 1.029 Normal 1.005-1.030 [facility] Comment on above: Order Comment: NO KN OWN ALLERGIES Performed By: #### L [id number] #### [facility] [address] [place] [id number] #### [id number] #### [facility] [address] [place], [place] [id number] UR SQUAMOUS EPI 4 - 5 Normal 3-5 [facility] Comment on above: Order Comment: NO KN OWN ALLERGIES Performed By: #### L [id number] #### [facility] [address] [place] [address] #### [id number] #### [facility] [address] [place] [address] UR UROBILINOGEN < 2.0 Normal <2.0 [facility] Comment on above: Order Comment: NO KN OWN ALLERGIES Performed By: #### L [id number] #### [facility] [address] [place], [place] [id number] #### [id number] #### [facility] [address] [place] [address] UR WBC 11 - 20 Abnormal 1-3 [facility] Comment on above: Order Comment: NO KN OWN ALLERGIES Performed By: #### L [id number] #### [facility] [address] [place] [address] #### [id number] #### [facility] [address] [place] [address] No Panel InformationOrdered By: Mak Stahl on 10-29-2023 POC Ur Test Qualitative Negative Negative [facility] Urgent Care Noteon Urgent Care Note Genesis Newby [address] [address] Urgent Care Note Signed Patient: Mellisa Eason MR#: [id number] : 2005 Acct: [id number] Age/Sex: 18 / F Loc: [facility] Date of Service: 10/29/[address]: Mak Stahl M.D. cc: None,Doctor D.O. Intake Vital Signs ([facility]) 10/29/23 18:08 Weight 89 lb 15.178 oz BP 129/84 Respiration 16 Pulse 96 H Temp 99.6 F Pulse Oximetry (%) 98 Oxygen Delivery Method Room Air Intake Visit Reasons: Cough/Runny Nose/Ear Complaints Switch Cleaner Required: No Allergies No Known Allergies Allergy (Verified 10/29/23 18:05) Medications - Last Reconciled 10/29/23 by Lourdes Pacheco LPN No Known Home Meds Is last menstrual period known: Yes Last menstrual period: 09/17/23 History History 0 Elective abortions Para Spontaneous abortions Hx # Term Pregnancies Ectopic pregnancies Hx # Pregnancies Multiple births Specific Travel Risk - COVID-19 Travel from high risk country; contact w/ high risk person(s): Yes PHQ-2/9 . Over the last 2 weeks, how often have you been bothered by any of the following problems? 1. Little interest or pleasure in doing things: not at all 2. Feeling down, depressed, or hopeless: not at all PHQ-2: Total score: 0 9. Thoughts that you would be better off or of hurting yourself in some way: not at all 0-4 None-Minimal, 5-9 Mild, 10-14 Moderate, 15-19 Moderately Severe, 20-27 Severe Source: Developed by Drs. Zachary Lozada, Ana Lynne, Kadeem Garcia and colleagues, with an educational aurea from [employer]. .. Nurse's Note Nurse's Note: nausea, nasal drainage/congestion x 3 days. Tylenol 1200. HPI Urgent Care HPI COVID-19 Testing ordered at today's visit? (Not Rapid/POC testing in clinic): No Details: 3-day history of nasal drainage cough nausea no bodyaches fevers or chills PFSH PFSH Medical History Cellulitis Dermatitis Ingrown nail of fifth toe No significant past medical history Surgical History No significant past surgical history Social History Advance Directives: No Advance Directives Information Provided: No Advance Directives on File: No Smoking Status: Never smoker Former alcohol user?: No How often do you have a drink containing alcohol: never Non prescribed substance use: denies use Travel outside of [place] in last 30 days?: No Are you able to complete the screen?: No (pt denied) What is your living situation today?: I have a steady place to live Cellulitis Dermatitis Ingrown nail of fifth toe No significant past medical history Questionnaire C-SSRS (Primary Care) [facility] Review of Systems [facility] Const Reports chills, Reports fatigue and Denies fever(s) Eyes Denies eye discharge and Denies itchy eyes ENT Reports Normal hearing present, nasal congestion, nasal discharge and sore throat; Denies otalgia or facial pain Card Denies dyspnea Resp Reports cough; Denies wheezing or dyspnea GI Denies diarrhea and Denies vomiting Skin/Breast Denies rash Neuro Reports Normal hearing present Endo Reports fatigue Aller/Immun Denies itchy eyes or wheezing Exam (AMB) Const Common normals: Yes no acute distress, Yes healthy appearing and Yes well nourished HEENT Common normals: external ears normal, EAC's normal and TM's normal bilaterally External ear: external ears normal External auditory canal: EAC's normal Tympanic membrane: TM's normal bilaterally Mouth: Normal oral and palatal mucosa present Throat: posterior oropharynx normal and tonsils normal Eye Common normals: Equal, round and reactive pupils present and conjunctivae normal Conjunctiva: conjunctivae normal Pupil: Equal, round and reactive pupils present Neck C-Spine Common normals: full ROM and no lymphadenopathy Respiratory Common normals: normal respiratory effort and clear to auscultation bilaterally Auscultation: clear to auscultation bilaterally Extremity Common normals: normal gait Skin Common normals: Yes no rashes or lesions noted and Yes turgor normal General skin exam: no rashes or lesions noted and turgor normal Assessment Plan (AMB) Assessment Plan (1) Viral URI with cough: Code(s): J06.9 - Acute upper respiratory infection, unspecified Medications: New loratadine-pseudoephe drine 5-120 mg ER (Loratadine-D) 1 tab ORAL Q12H 20 tabs 0RF R09.81 - Nasal congestion Patient Instructions: You have been diagnosed with a Viral Upper Respiratory Infection (Cold virus). Symptoms will tend to be most sev (more content not included)... Normal [facility] Urine Test POCon 0 10-29-2023 Beta HCG ( test) Ql (U) Negative Normal Negative [facility] Comment on above: Order Comment: Speci men Type: UnknownRelevant Clinical Information: Cough/Runny Nose/Ear ComplaintsOrdering Facility: POC Address: , , Performed By: #### P OCUPREG ####[facility] CtrCL[facility] [id number] Influenza A & B Ag, Swab/NWo n 09-28-2023 INFLUENZA A ANTIGEN Negative Normal NEGATIVE [facility] Comment on above: Order Comment: NO KN OWN ALLERGIES Performed By: #### L [id number] #### [facility] [address] [place] [address] INFLUENZA B ANTIGEN Negative Normal NEGATIVE [facility] Comment on above: Order Comment: NO KN OWN ALLERGIES Performed By: #### L [id number] #### [facility] [address] [place] [address] Influenza A & B, Swab/NWon 0 09-28-2023 FLUAV Ag IA Ql (Unsp spec) Negative NEGATIVE [facility] FLUBV Ag IA Ql (Unsp spec) Negative NEGATIVE [facility] No Panel Informationon 09-28 NO KNOWN ALLERGIES KDOH L AB [facility] SARS-CoV-2 Ag, QLon 09-28-19 24 SARS-CoV+SARS-CoV-2 (COVID-19) Ag IA.rapid Ql (Resp) Not detected Undetected [facility] Comment on above: Testing was performe d using [employer]'s [employer] COVID-19 Ag Card. Fact sheets for this Emergency Use Authorization (EUA) assay can be found at the following links: For Healthcare Providers: https://www.fda.gov/media/764877/download For Patients: https://www.fda.gov/media/755701/download Test Performed by: [facility],[address] [place] [address], Skylights Assembler: Amie Mason D.O. CLIA: [id number] SARS-CoV-2 Ag, QL (SWAB)on 0 09-28-2023 SARS-CoV-2 (COVID-19) Ab IA Ql Not detected Normal Undetected [facility] Comment on above: Order Comment: NO KN OWN ALLERGIES Result Comment: Test ing was performed using [employer]'s [employer] COVID-19 Ag Card. Fact sheets for this Emergency Use Authorization (EUA) assay can be found at the following links: For Healthcare Providers: https://www.fda.gov/media/699266/download For Patients: https://www.fda.gov/media/860141/download Test Performed by: [facility],[address] [place] [address], Skylights Assembler: Amie Mason D.O. CLIA: [id number] Performed By: #### L [id number] #### [facility] [address] [place] [address] Acetaminophenon 09-18-2023 Acetaminophen [Mass/Vol] ug/mL Low 10-20 [facility] Comment on above: Order Comment: Speci men Type: Unknown Relevant Clinical Information: etoh Ordering Facility: [facility]-CLIA#[id number] Address: [address] [place] [address] Performed By: #### S AL, ETOH, ACET #### [facility]-CLIA#[id number] CLIA [id number] [address] [place] [address] Albaro Flood DO,FCAP Basic Metabolic Panelon Anion gap [Moles/Vol] 11 mmol/L Normal 7-17 [facility] Comment on above: Order Comment: Speci men Type: UnknownRelevant Clinical Information: etohOrdering Facility: [facility]-CLIA#[id number] Address: [address] [place] [address] Performed By: #### B MP ####[facility]-CLIA#[id number] [address] [place], [place] [address]Vincent Randaisi, DO,FCAP Calcium [Mass/Vol] 8.9 mg/dL Normal 8.3-10.6 [facility] Comment on above: Order Comment: Speci men Type: UnknownRelevant Clinical Information: etohOrdering Facility: [facility]-CLIA#[id number] Address: [address] [place] [address] Performed By: #### B MP ####[facility]-CLIA#[id number] [address] [place], [place] [address]Vincent Randaisi, DO,FCAP Chloride [Moles/Vol] 110 mmol/L High 98-107 [facility] Comment on above: Order Comment: Speci men Type: UnknownRelevant Clinical Information: etohOrdering Facility: [facility]-CLIA#[id number] Address: [address] [place] [address] Performed By: #### B MP ####[facility]-CLIA#[id number] [address] [place] [address] Randaisi, DO,FCAP CO2 [Moles/Vol] 24 mmol/L Normal 20-31 [facility] Comment on above: Order Comment: Speci men Type: UnknownRelevant Clinical Information: etohOrdering Facility: [facility]-CLIA#[id number] Address: [address] [place] [address] Performed By: #### B MP ####[facility]-CLIA#[id number] [address] [place], [place] [address]Vincent Randaisi, DO,FCAP Creatinine [Mass/Vol] 0.762 mg/dL Normal 0.55-1.02 [facility] Comment on above: Order Comment: Speci men Type: UnknownRelevant Clinical Information: etohOrdering Facility: [facility]-CLIA#[id number] Address: [address] [place] [address] Performed By: #### B MP ####[facility]-CLIA#[id number] [address] [place], [place] [address]Vincent Randaisi, DO,FCAP Creatinine Clr Calc Pharmacy 76 [facility] Comment on above: Order Comment: Speci men Type: UnknownRelevant Clinical Information: etohOrdering Facility: [facility]-CLIA#[id number] Address: [address] [place] [address] Performed By: #### B MP ####[facility]-CLIA#[id number] [address] [place], [place] [address]Vincent Randaisi, DO,FCAP GFR/1.73 sq M.predicted MDRD (S/P/Bld) [Vol rate/Area] 103 mL/min/{1.73_m2} [facility] Comment on above: Order Comment: Speci men Type: UnknownRelevant Clinical Information: etohOrdering Facility: [facility]-CLIA#[id number] Address: [address] [place] [address] Result Comment: K/DO QI Guideline: Stage 1 >/=90 mL/min/1.73m2 - Not Consistent with CKD Stage 2 60-89 mL/min/1.73m2 - Consistent with Mild CKD Stage 3 30-59 mL/min/1.73m2 - Consistent with Moderate CKD Stage 4 15-29 mL/min/1.73m2 - Consistent with Severe CKD Stage 5 <15 mL/min/1.73m2 - Consistent with Kidney Failure Estimated Glomerular Filtration Rate (eGFR) is a calculated value utilizing the MDRD equation and provides an estimate of renal function. The equation assumes a steady state and should not be used for patients that meet any of the following criteria: - Are younger than 18 or older than 70 - Have rapidly fluctuating kidney function - Are - Have serious comorbid conditions - Have extremes of body size - Have extremes of muscle mass - Have extremes of nutritional status - Are non- or non- - Have normal kidney function Performed By: #### B MP ####[facility]-CLIA#[id number] [address] [place] [id number] Randaisi, DO,FCAP Glucose [Mass/Vol] 102 mg/dL Normal 74-106 [facility] Comment on above: Order Comment: Speci men Type: UnknownRelevant Clinical Information: etohOrdering Facility: [facility]-CLIA#[id number] Address: [address] [place] [address] Performed By: #### B MP ####[facility]-CLIA#[id number] [address] [place], [place] [address]Vincent Randaisi, DO,FCAP Potassium [Moles/Vol] 3.4 mmol/L Low 3.5-5.1 [facility] Comment on above: Order Comment: Speci men Type: UnknownRelevant Clinical Information: etohOrdering Facility: [facility]-CLIA#[id number] Address: [address] [place], [place] [address] Performed By: #### B MP ####[facility]-CLIA#[id number] [address] [place], [place] [address]Vincent Randaisi, DO,FCAP Sodium [Moles/Vol] 142 mmol/L Normal 136-145 [facility] Comment on above: Order Comment: Speci men Type: UnknownRelevant Clinical Information: etohOrdering Facility: [facility]-CLIA#[id number] Address: [address] [place], [place] [id number] Performed By: #### B MP ####[facility]-CLIA#[id number] [address] [place] [address]Elctrdh Randaisi, DO,FCAP Urea nitrogen [Mass/Vol] 6 mg/dL Low 9-23 [facility] Comment on above: Order Comment: Speci men Type: UnknownRelevant Clinical Information: etohOrdering Facility: [facility]-CLIA#[id number] Address: [address] [place] [address] Performed By: #### B MP ####[facility]-CLIA#[id number] [address] [place], [place] [address]Vincent Maria Victoriaaisi, DO,FCAP CBC w/ Auto Diffon 4 Basophils Absolute Auto 0.06 10*3/uL Normal 0.00-0.10 [facility] Comment on above: Order Comment: Speci men Type: Unknown Relevant Clinical Information: etoh Ordering Facility: [facility] Lab-CLIA#[id number] Address: [address] [place] [address] Performed By: #### C BC #### [facility] Lab-CLIA#[id number] CLIA [id number] [address] [place] [address] Albaro Fernandessi, DO,FCAP Basophils/100 WBC (Bld) 0.6 % Normal 0.0-1.3 [facility] Comment on above: Order Comment: Speci men Type: Unknown Relevant Clinical Information: etoh Ordering Facility: [facility] Lab-CLIA#[id number] Address: [address] [place] [address] Performed By: #### C BC #### [facility]-CLIA#[id number] CLIA [id number] [address] [place] [address] Vincpiotr Fernandessi, DO,FCAP Eosinophils (Bld) [#/Vol] 0.01 10*3/uL Normal 0.00-0.50 [facility] Comment on above: Order Comment: Speci men Type: Unknown Relevant Clinical Information: etoh Ordering Facility: [facility] Lab-CLIA#[id number] Address: [address] [place] [address] Performed By: #### C BC #### [facility]-CLIA#[id number] CLIA [id number] [address] [place] [address] Albaro Flood DO,FCAP Eosinophils/100 WBC (Bld) 0.1 % Normal 0.0-5.8 [facility] Comment on above: Order Comment: Speci men Type: Unknown Relevant Clinical Information: etoh Ordering Facility: [facility] Lab-CLIA#[id number] Address: [address] [place] [address] Performed By: #### C BC #### [facility] Lab-CLIA#[id number] CLIA [id number] [address] [place] [address] Albaro Flood DO,FCAP Erythrocyte distribution width (RBC) [Ratio] 15.9 % High 11.6-14.8 [facility] Comment on above: Order Comment: Speci men Type: Unknown Relevant Clinical Information: etoh Ordering Facility: [facility] Lab-CLIA#[id number] Address: [address] [place] [address] Performed By: #### C BC #### [facility] Lab-CLIA#[id number] CLIA [id number] [address] [place] [address] Albaro Flood DO,FCAP Hematocrit (Bld) [Volume fraction] 32.9 % Low 35.4-47.9 [facility] Comment on above: Order Comment: Speci men Type: Unknown Relevant Clinical Information: etoh Ordering Facility: [facility] Lab-CLIA#[id number] Address: [address] [place] [address] Performed By: #### C BC #### [facility] Lab-CLIA#[id number] CLIA [id number] [address] [place] [address] Albaro Flood DO,FCAP Hemoglobin (Bld) [Mass/Vol] 11.4 g/dL Low 11.9-16.0 [facility] Comment on above: Order Comment: Speci men Type: Unknown Relevant Clinical Information: etoh Ordering Facility: [facility] Lab-CLIA#[id number] Address: [address] [place] [address] Performed By: #### C BC #### [facility] Lab-CLIA#[id number] CLIA [id number] [address] [place] [address] Albaro Flood DO,FCAP Lymphocytes (Bld) [#/Vol] 2.78 10*3/uL Normal 0.80-3.30 [facility] Comment on above: Order Comment: Speci men Type: Unknown Relevant Clinical Information: etoh Ordering Facility: [facility] Lab-CLIA#[id number] Address: [address] [place] [address] Performed By: #### C BC #### [facility]-CLIA#[id number] CLIA [id number] [address] [place] [address] Albaro Flood DO,FCAP Lymphocytes/100 WBC (Bld) 28.5 % Normal 13.4-45.1 [facility] Comment on above: Order Comment: Speci men Type: Unknown Relevant Clinical Information: etoh Ordering Facility: [facility] Lab-CLIA#[id number] Address: [address] [place] [address] Performed By: #### C BC #### [facility]-CLIA#[id number] CLIA [id number] [address] [place] [address] Albaro Flood DO,FCAP MCH (RBC) [Entitic mass] 26.1 pg Low 27.2-33.0 [facility] Comment on above: Order Comment: Speci men Type: Unknown Relevant Clinical Information: etoh Ordering Facility: [facility] Lab-CLIA#[id number] Address: [address] [place] [address] Performed By: #### C BC #### [facility]-CLIA#[id number] CLIA [id number] [address] [place] [address] Albaro Flood DO,FCAP MCHC (RBC) [Mass/Vol] 34.7 g/dL Normal 31.9-35.1 [facility] Comment on above: Order Comment: Speci men Type: Unknown Relevant Clinical Information: etoh Ordering Facility: [facility] Lab-CLIA#[id number] Address: [address] [place] [address] Performed By: #### C BC #### [facility]-CLIA#[id number] CLIA [id number] [address] [place] [address] Albaro Flood DO,FCAP MCV (RBC) [Entitic vol] 75.3 fL Low 82.1-97.1 [facility] Comment on above: Order Comment: Speci men Type: Unknown Relevant Clinical Information: etoh Ordering Facility: [facility] Lab-CLIA#[id number] Address: [address] [place] [address] Performed By: #### C BC #### [facility] Lab-CLIA#[id number] CLIA [id number] [address] [place] [address] Albaro Flood DO,FCAP Monocytes (Bld) [#/Vol] 0.38 10*3/uL Normal 0.30-0.90 [facility] Comment on above: Order Comment: Speci men Type: Unknown Relevant Clinical Information: etoh Ordering Facility: [facility] Lab-CLIA#[id number] Address: [address] [place] [address] Performed By: #### C BC #### [facility]-CLIA#[id number] CLIA [id number] [address] [place] [address] Albaro Flood DO,FCAP Monocytes/100 WBC (Bld) 3.9 % Low 4.0-12.7 [facility] Comment on above: Order Comment: Speci men Type: Unknown Relevant Clinical Information: etoh Ordering Facility: [facility] Lab-CLIA#[id number] Address: [address] [place] [address] Performed By: #### C BC #### [facility] Lab-CLIA#[id number] CLIA [id number] [address] [place] [address] Albaro Flood, DO,FCAP Neutrophils Absolute Auto 6.47 10*3/uL Normal 1.70-7.00 [facility] Comment on above: Order Comment: Speci men Type: Unknown Relevant Clinical Information: etoh Ordering Facility: [facility] Lab-CLIA#[id number] Address: [address] [place] [address] Performed By: #### C BC #### [facility]-CLIA#[id number] CLIA [id number] [address] [place] [address] Albaro Flood DO,FCAP Neutrophils/100 WBC (Bld) 66.2 % Normal 41.1-75.9 [facility] Comment on above: Order Comment: Speci men Type: Unknown Relevant Clinical Information: etoh Ordering Facility: [facility] Lab-CLIA#[id number] Address: [address] [place] [address] Performed By: #### C BC #### [facility] Lab-CLIA#[id number] CLIA [id number] [address] [place] [address] Albaro Flood, DO,FCAP Platelet mean volume (Bld) [Entitic vol] 11.3 fL Normal 8.6-12.2 [facility] Comment on above: Order Comment: Speci men Type: Unknown Relevant Clinical Information: etoh Ordering Facility: [facility] Lab-CLIA#[id number] Address: [address] [place] [address] Performed By: #### C BC #### [facility] Lab-CLIA#[id number] CLIA [id number] [address] [place] [address] Albaro Flood, DO,FCAP Platelets (Bld) [#/Vol] 288 10*3/uL Normal 133-425 [facility] Comment on above: Order Comment: Speci men Type: Unknown Relevant Clinical Information: etoh Ordering Facility: [facility] Lab-CLIA#[id number] Address: [address] [place] [address] Performed By: #### C BC #### [facility] Lab-CLIA#[id number] CLIA [id number] [address] [place] [address] Albaro Flood DO, FCAP RBC (Bld) [#/Vol] 4.37 10*6/uL Normal 3.40-5.40 [facility] Comment on above: Order Comment: Speci men Type: Unknown Relevant Clinical Information: etoh Ordering Facility: [facility] Lab-CLIA#[id number] Address: [address] [place] [address] Performed By: #### C BC #### [facility] Lab-CLIA#[id number] CLIA [id number] [address] [place] [address] Albaro Flood DOFCAP WBC (Bld) [#/Vol] 9.8 10*3/uL Normal 4.5-11.0 [facility] Comment on above: Order Comment: Speci men Type: Unknown Relevant Clinical Information: etoh Ordering Facility: [facility] Lab-CLIA#[id number] Address: [address] [place] [address] Performed By: #### C BC #### [facility] Lab-CLIA#[id number] CLIA [id number] [address] [place] [address] Albaro Flood DOFCCHRISTIAN Emergency Department Noteon 09-18-2023 Emergency Department Note [facility] [place] [address] Emergency Department Note Signed Patient: Mellisa Eason MR#: [id number] : 2005 Acct: [id number] Age/Sex: 18 / F ADM Date: 09/17/232307 Loc: ER.SV Attending Dr: cc: None,Doctor D.OMelissa HPI - Alcohol General Chief Complaint: Alcohol Stated Complaint: etoh Time Seen by Provider: 09/17/23 22:07 Source: patient Mode of arrival: wheelchair Limitations: no limitations History of Present Illness HPI narrative: 18-year-old female presents per friends for evaluation of being drunk and high . Patient states that she had 4 shots of a mixture of [place] and pink [place]. She states she also smoked marijuana. She states she does not typically drink and does not typically smoke marijuana. She states last drink was around an hour prior to arrival. She had some nausea and vomiting so her friends brought her here. On initial exam patient is alert and orient x 3 and answers questions appropriately. Patient states she does not need to be seen but was originally agreeable for blood work and fluids. Her 3 friends at bedside with the patient. Patient denies any fever, chills, chest pain, abdominal pain, dysuria, hematuria. MD complaint: alcohol intoxication Last drink: hours (ago) (1) Amount of alcohol consumed: 4 shots Associated symptoms: nausea and vomiting Related Data Home Medications Medication Instructions Recorded Confirmed No Known Home Meds 02/20/22 02/20/22 Previous Rx's Medication Instructions Recorded acetaminophen 500 mg capsule 500 mg ORAL Q6H PRN fever or pain 02/20/22 #30 caps ibuprofen 400 mg tablet 400 mg ORAL Q8H PRN fever or pain 02/20/22 #20 tabs ondansetron 4 mg disintegrating 4 mg ORAL Q8H PRN nausea and 02/20/22 tablet vomiting 4 days #14 tabs phenol 1.4 % mucosal aerosol spray 3 spray mucous membrane Q4H PRN 02/20/22 (Chloraseptic Throat Burr) sore throat #177 mL Allergies Allergy/AdvReac Type Severity Reaction Status Date / Time No Known Allergies Allergy Verified 02/20/22 14:15 Review of Systems Const: Constitutional: Denies fever(s), chills or headache(s) Eyes: Eyes: Denies eye pain or blurry vision ENT: ENT: Denies dizziness or headache(s) Cardio: Cardiology: Denies chest pain or dyspnea Resp: Respiratory: Denies cough or dyspnea Gastro: GI: Reports nausea and vomiting; Denies abdominal pain Genitou: Genitourinary female: Denies dysuria or urinary frequency Musculo: Symptoms musculoskeletal: Denies back pain or myalgias Skin/Breast: Symptoms integumentary/breasts : Denies rash or erythema Neurologic: Neurologic: Denies headache(s) or dizziness PFS PFS Medical History Cellulitis Dermatitis Ingrown nail of fifth toe No significant past medical history Surgical History No significant past surgical history Social History Advance Directives: No Advance Directives Information Provided: No Advance Directives on File: No Would like to be referred to Handkerchief Maker for info?: No Smoking Status: Never smoker Former alcohol user?: No How often do you have a drink containing alcohol: never Non prescribed substance use: denies use Travel outside of [place] in last 30 days?: No Cellulitis Dermatitis Ingrown nail of fifth toe No significant past medical history Exam Const Common normals: Yes no acute distress, Yes patient oriented x3 and Yes alert General appearance: cooperative, No in distress, No lethargic and No ill appearing Nutritional appearance: thin Orientation/conscious ness: awake, oriented to person, oriented to place, oriented to time and No lethargic Other: Accompanied by 3 friends at bedside HEENT Common normals: normocephalic, atraumatic, moist oral mucous membranes and oropharynx normal Head and scalp: normocephalic and atraumatic Eye Common normals: Equal, round and reactive pupils present and conjunctivae normal General eye: appearance normal, both eyes and all related structures Conjunctiva: conjunctivae normal Pupil: Equal, round and reactive pupils present Neck C-Spine Common normals: full ROM General: normal visual inspection and trachea midline Respiratory Common normals: normal respiratory effort, No retractions, No use of accessory muscles and clear to auscultation bilaterally Effort inspection: able to speak in complete sentences, No tachypneic, No respiratory distress and No retractions Auscultation: clear to auscultation bilaterally Cardio Common normals: regular rate and regular rhythm Rate: regular rate Rhythm: regular rhythm GI Common normals: Normal to inspection, (more content not included)... Normal [facility] Ethyl Alcohol Levelon 2023 Ethyl Alcohol Level 102 mg/dL High <11 [facility] Comment on above: Order Comment: Speci men Type: Unknown Relevant Clinical Information: etoh Ordering Facility: [facility] Lab-CLIA#[id number] Address: [address] [place] [address] Performed By: #### S AL, ETOH, ACET #### [facility] Lab-CLIA#[id number] CLIA [id number] [address] [place] [address] Albaro Flood DO,FCAP HCG Qualitativeon 09-18-2023 HCG Qualitative Negative Normal Negative [facility] Comment on above: Order Comment: Speci men Type: Unknown Relevant Clinical Information: etoh Ordering Facility: [facility] Lab-CLIA#[id number] Address: [address] [place] [address] Performed By: #### H CGQ #### [facility] Lab-CLIA#[id number] CLIA [id number] [address] [place] [address] Albaro Flood DO,FCAP Salicylateon 09-18-2023 Salicylate <3.0 Normal <30.0 [facility] Comment on above: Order Comment: Speci men Type: Unknown Relevant Clinical Information: etoh Ordering Facility: [facility] Lab-CLIA#[id number] Address: [address] [place] [address] Performed By: #### S AL, ETOH, ACET #### [facility] Lab-CLIA#[id number] CLIA [id number] [address] [place] [address] Albaro Flood DO,FCAP Absolute lymphocyte countOrd ered By: Gertrudis Bates on 09-17-2023 Lymphocytes Auto (Unsp spec) [#/Vol] 2.78 10*3/uL 0.80-3.30 [facility] Basophils Auto (Bld) [#/Vol] Ordered By: Gertrudis Bates on 09-17-2023 Basophils (Bld) [#/Vol] 0.06 10*3/uL 0.00-0.10 [facility] Basophils/100 WBC Auto (Bld) Ordered By: Gertrudis Bates on 09-17-2023 Basophils/100 WBC (Bld) 0.6 % 0.0-1.3 [facility] Blood hemoglobin measurement (mass/volume)Ordered By: Gertrudis Bates on 09-17-2023 Hemoglobin (Bld) [Mass/Vol] 11.4 g/dL 11.9-16.0 [facility] Eosinophils Auto (Bld) [#/Vo l]Ordered By: Gertrudis Bates on 09-17-2023 Eosinophils (Bld) [#/Vol] 0.01 10*3/uL 0.00-0.50 [facility] Eosinophils/100 WBC Auto (Bl d)Ordered By: Gertrudis Bates on 09-17-2023 Eosinophils/100 WBC (Bld) 0.1 % 0.0-5.8 [facility] Erythrocyte distribution wid th Auto (RBC) [Ratio]Ordered By: Gertrudis Bates on 09-17-2023 Erythrocyte distribution width (RBC) [Ratio] 15.9 % 11.6-14.8 [facility] Glomerular filtration rate ( GFR) estimation/1.73 sq m using creatinine measurement wiOrdered By: Gertrudis Bates on 09-17-2023 GFR/1.73 sq M.predicted CKD-EPI (S/P/Bld) [Vol rate/Area] 103 mL/min >60 [facility] Comment on above: K/DOQI Guideline:Sta ge 1 >/=90 mL/min/1.73m2 - Not Consistent with CKDStage 2 60-89 mL/min/1.73m2 - Consistent with Mild CKDStage 3 30-59 mL/min/1.73m2 - Consistent with Moderate CKDStage 4 15-29 mL/min/1.73m2 - Consistent with Severe CKDStage 5 <15 mL/min/1.73m2 - Consistent with Kidney FailureEstimated Glomerular Filtration Rate (eGFR) is a calculated value utilizing the MDRD equation and provides an estimate of renal function. The equation assumes a steady state and should not be used for patients that meet any of the following criteria:- Are younger than 18 or older than 70- Have rapidly fluctuating kidney function- Are - Have serious comorbid conditions- Have extremes of body size- Have extremes of muscle mass - Have extremes of nutritional status- Are non- or non-- Have normal kidney function HCG ( test) Rafael calderon Ql (S)Ordered By: Gertrudis Bates on 09-17-2023 HCG ( test) Ql Negative Negative [facility] Hematocrit Auto (Bld) [Volum e fraction]Ordered By: Gertrudis Bates on 09-17-2023 Hematocrit (Bld) [Volume fraction] 32.9 % 35.4-47.9 [facility] Laboratory - Chemistry and C hemistry - challengeOrdered By: Gertrudis Bates on 09-17-2023 Anion gap [Moles/Vol] 11 mmol/L 7-17 [facility] Lymphocytes/100 WBC Auto (Bl d)Ordered By: Gertrudis Bates on 09-17-2023 Lymphocytes/100 WBC (Bld) 28.5 % 13.4-45.1 [facility] MCH Auto (RBC) [Entitic mass ]Ordered By: Gertrudis Bates on 09-17-2023 MCH (RBC) [Entitic mass] 26.1 pg 27.2-33.0 [facility] MCHC Auto (RBC) [Mass/Vol]Or dered By: Gertrudis Bates on 09-17-2023 MCHC (RBC) [Mass/Vol] 34.7 g/dL 31.9-35.1 [facility] MCV (mean corpuscular volume ) determinationOrdered By: Gertrudis Bates on 09-17-2023 MCV (RBC) [Entitic vol] 75.3 fL 82.1-97.1 [facility] Monocytes Auto (Bld) [#/Vol] Ordered By: Gertrudis Bates on 09-17-2023 Monocytes (Bld) [#/Vol] 0.38 10*3/uL 0.30-0.90 [facility] Monocytes/100 WBC Auto (Bld) Ordered By: Gertrudis Bates on 09-17-2023 Monocytes/100 WBC (Bld) 3.9 % 4.0-12.7 [facility] Neutrophils Auto (Bld) [#/Vo l]Ordered By: Gertrudis Bates on 09-17-2023 Neutrophils (Bld) [#/Vol] 6.47 10*3/uL 1.70-7.00 [facility] Neutrophils/100 WBC Auto (Bl d)Ordered By: Gertrudis Bates on 09-17-2023 Neutrophils/100 WBC (Bld) 66.2 % 41.1-75.9 [facility] No Panel InformationOrdered By: Gertrudis Bates on 09-17-2023 Pharmacy Creatinine Clearance (Chem 76 [facility] Platelet mean volume Auto (B ld) [Entitic vol]Ordered By: Gertrudis Bates on 09-17-2023 Platelet mean volume (Bld) [Entitic vol] 11.3 fL 8.6-12.2 [facility] Platelets Auto (Bld) [#/Vol] Ordered By: Gertrudis Bates on 09-17-2023 Platelets (Bld) [#/Vol] 288 10*3/uL 133-425 [facility] RBC Auto (Bld) [#/Vol]Ordere d By: Gertrudis Bates on 09-17-2023 RBC (Bld) [#/Vol] 4.37 10*6/uL 3.40-5.40 [facility] Serum or plasma acetaminophe n measurement (mass/volume)Ordered By: Gertrudis Bates on 09-17-2023 Acetaminophen [Mass/Vol] ug/mL 10-20 [facility] Serum or plasma calcium indy urement (mass/volume)Ordered By: Gertrudis Bates on 09-17-2023 Calcium [Mass/Vol] 8.9 mg/dL 8.3-10.6 [facility] Serum or plasma chloride kelton surement (moles/volume)Ordered By: Gertrudis Bates on 09-17-2023 Chloride [Moles/Vol] 110 mmol/L 98-107 [facility] Serum or plasma creatinine m easurement (mass/volume)Ordered By: Gertrudis Bates on 09-17-2023 Creatinine [Mass/Vol] 0.762 mg/dL 0.55-1.02 [facility] Serum or plasma ethanol indy urement (mass/volume)Ordered By: Gertrudis Bates on 09-17-2023 Ethanol [Mass/Vol] 102 mg/dL 0-10 [facility] Serum or plasma glucose indy urement (mass/volume)Ordered By: Gertrudis Bates on 09-17-2023 Glucose [Mass/Vol] 102 mg/dL 74-106 [facility] ramos [facility] Serum or plasma potassium me asurement (moles/volume)Ordered By: Gertrudis Bates on 09-17-2023 Potassium [Moles/Vol] 3.4 mmol/L 3.5-5.1 [facility] Serum or plasma salicylates measurement (mass/volume)Ordered By: Gertrudis Bates on 09-17-2023 Salicylates [Mass/Vol] mg/dL 0-29.9 So [facility] Serum or plasma sodium measu rement (moles/volume)Ordered By: Gertrudis Bates on 09-17-2023 Sodium [Moles/Vol] 142 mmol/L 136-145 [facility] ramos [facility] Serum or plasma total carbon dioxide measurement (moles/volume)Ordered By: Gertrudis Bates on 09-17-2023 CO2 [Moles/Vol] 24 mmol/L 20- [facility] Serum or plasma urea nitroge n measurement (mass/volume)Ordered By: Gertrudis Bates on 09-17-2023 Urea nitrogen [Mass/Vol] 6 mg/dL 9- [facility] WBC Auto (Bld) [#/Vol]Ordere d By: Gertrudis Bates on 09-17-2023 WBC (Bld) [#/Vol] 9.8 10*3/uL 4.5-11.0 [facility] ramos [facility] PREG TEST, UA QUALon 023 TEST,UR QL Negative Normal NEGATIVE [facility] Comment on above: Order Comment: NO KN OWN ALLERGIES Performed By: #### L [id number] #### [facility] [address] [place] [id number] RAPID STREP A ANTIGENon 06-14 S. pyogenes Ag IA Ql (Unsp spec) Negative Normal Negative [facility] RAPID STREP A ANTIGENOrdered By: Jacinta Gary on 07-02-2023 Interpretation and review of laboratory results Normal [facility] S. pyogenes DNA KEITH+probe Nom (Unsp spec) Negative Negative [facility] Basophil percentageon 2021 Basophil percentage Not detected Not Detect [facility] Work Phone: Bordetella pertussis DNA det ection by probe and target amplification methodon 02-20-2022 B. pertussis DNA KEITH+probe Ql (Unsp spec) Not detected Not Detect [facility] Work Phone: Detection in nasopharyngeal specimen of RNA of either or both rhinovirus and enterovion 02-20-2022 Rhinovirus+Enterovirus RNA KEITH+probe Ql (Nph) Detected Not Detect [facility] Work Phone: Human coronavirus 229E RNA d etection by probe and target amplification methodon 02-20-2022 HCoV 229E RNA KEITH+probe Ql (Unsp spec) Not detected Not Detect [facility] Work Phone: Human coronavirus OC43 RNA d etection by probe and target amplification methodon 02-20-2022 HCoV OC43 RNA KEITH+probe Ql (Unsp spec) Not detected Not Detect [facility] Work Phone: [phone] Influenza virus A H3 RNA det ection by probe and target amplification methodon 02-20-2022 FLUAV H3 RNA KEITH+probe Ql (Unsp spec) Not detected Not Detect [facility] Work Phone: No Panel Informationon 02-20 Adenovirus (PCR) Not detected Not Detect [facility] Work Phone: Coronavirus Type HKU1 (PCR) Not detected Not Detect [facility] Work Phone: Coronavirus Type NL63 (PCR) Not detected Not Detect [facility] Work Phone: Human Metapneumovirus A and B (PCR) Not detected Not Detect [facility] Work Phone: Influenza Type A (H1) (PCR) Not detected Not Detect [facility] Work Phone: Influenza Type A (H1N1/09) (PCR) Not detected Not Detect [facility] Work Phone: Influenza Type A (RT-PCR) Not detected Not Detect [facility] Work Phone: Influenza Type B (RT-PCR) Not detected Not Detect [facility] Work Phone: [phone] Mycoplasma pneumoniae (PCR) Not detected Not Detect [facility] Work Phone: Parainfluenza Type 1 (PCR) Not detected Not Detect [facility] Work Phone: [phone] Parainfluenza Type 2 (PCR) Not detected Not Detect [facility] Work Phone: [phone] Parainfluenza Type 3 (PCR) Not detected Not Detect [facility] Work Phone: Parainfluenza Type 4 (PCR) Not detected Not Detect [facility] Work Phone: [phone] Rapid influenza A antigen de tectionon 02-20-2022 FLUAV Ag IA.rapid Ql (Nph) Negative Negative [facility] Work Phone: [phone] Rapid influenza B antigen de tectionon 02-20-2022 FLUBV Ag Ql (Unsp spec) Negative Negative [facility] Work Phone: [phone] Respiratory specimen Chlamyd ia pneumoniae nucleic acid assay by PCRon 02-20-2022 C. pneumoniae DNA KEITH+probe Ql (Lower resp) Not detected Not Detect [facility] Work Phone: SARS-CoV-2 (COVID-19) RNA [P resence] in Nasopharynx by KEITH with probe detectionon 02-20-2022 SARS-CoV-2 (COVID-19) RNA KEITH+probe Ql (Nph) Not detected Not Detect [facility] Work Phone: [phone] Comment on above: Method: Real-time Re verse Transcriptase polymerase chain reaction(RT-PCR)The sensitivity of the assay is dependent on the quality of the specimen collected for testing. The test is specific for severe acute respiratory syndrome coronavirus 2 (SARS-CoV-2), and positive test results do not exclude the possibility of concurrent infection with other respiratory viruses. Negative results do not preclude infection with SARS-CoV-2 and should not be used as the sole basis for decisions on treatment or other patient care management.This test has been authorized by FDA under an Emergency Use Authorization (EUA). This test is only authorized for the duration of time the declaration that circumstances exist justifying the authorization of the emergency use of in vitro diagnostic tests for detection of SARS-CoV-2 virus and/or diagnosis of COVID-19 infection under section 564(b)(1) of the Act, 21 U.S.C. 360bbb-3(b)(1), unless the authorization is terminated or revoked sooner. Streptococcus group A rapid screenon 02-20-2022 S. pyogenes Ag IA.rapid Ql (Throat) Negative Negative [facility] Work Phone: Appearance uron 10-16-2021 Appearance (U) Cloudy Clear [facility] Work Phone: Automated bacteria count in urine sediment (number/area)on 10-16-2021 Bacteria Auto (Urine sed) [#/Area] Occasional None [facility] Work Phone: Automated erythrocytes count in urine sediment (number/area)on 10-16-2021 RBC Auto (Urine sed) [#/Area] 56 /HPF 0-5 [facility] Work Phone: Automated non-squamous epith elial cells count in urine sediment (number/area)on 10-16-2021 Epithelial cells.non-squamous Auto (Urine sed) [#/Area] 0 /HPF 0-4 [facility] Work Phone: Automated urine leukocytes c ount (number/volume)on 10-16-2021 WBC Auto (U) [#/Vol] 126 /HPF 0-4 [facility] Work Phone: Bilirubin Auto test strip Ql (U)on 10-16-2021 Bilirubin Ql (U) Small Negative [facility] Work Phone: C. trachomatis rRNA KEITH+prob e Ql (Unsp spec)on 10-16-2021 Chlamydia Trachomatis [facility] Work Phone: Hyaline casts detection in u rine sediment by light microscopyon 10-16-2021 Hyaline casts LM Ql (Urine sed) 0 /LPF 0-5 [facility] Work Phone: Ketones Auto test strip (U) [Mass/Vol]on 10-16-2021 Ketones (U) [Mass/Vol] Negative Negative [facility] Work Phone: Laboratory - Chemistry and C hemistry - challengeon 10-16-2021 Ketones Ql (U) Negative Negative [facility] Work Phone: [phone] pH (U) 5.5 [pH] 0-7.5 [facility] Work Phone: [phone] Specific gravity (U) [Rel density] >=1.030 1.000-1.030 [facility] Work Phone: Urobilinogen Qn (U) 0.2 {Noreen'U}/dL 0-1.9 [facility] Work Phone: Laboratory - Hematology and Cell countson 10-16-2021 Hemoglobin Ql (U) Moderate Negative [facility] Work Phone: [phone] Laboratory - Specimen inform ationon 10-16-2021 Appearance (U) Slightly Cloudy Clear [facility] Work Phone: Laboratory - Urinalysison Leukocyte esterase Test strip Ql (U) Small Negative [facility] Work Phone: Protein (U) [Mass/Vol] 100 mg/dL Negative [facility] Work Phone: No Panel Informationon 10-16 Neisseria Gonorrhoeae [facility] Work Phone: Trichomonas Vaginalis RT-PCR [facility] Work Phone: POC Urine Bilirubin Confirmation Negative Negative [facility] Work Phone: POC Urine Glucose Negative Negative [facility] Work Phone: POC Urine Nitrate Negative Negative [facility] Work Phone: Protein Auto test strip (U) [Mass/Vol]on 10-16-2021 Protein (U) [Mass/Vol] 100 mg/dL Negative [facility] Work Phone: Urine blood detectionon - RBC Ql (U) Large Negative [facility] Work Phone: Urine coloron 10-16-2021 Color (U) Yellow Yellow [facility] Work Phone: Color (U) [place] Yellow [facility] Work Phone: Urine glucose measurement by automated test strip (mass/volume)on 10-16-2021 Glucose Auto test strip (U) [Mass/Vol] Negative Negative [facility] Work Phone: Urine leukocyte esterase kelton surementon 10-16-2021 Leukocyte esterase Auto test strip Ql (U) Moderate Negative [facility] Work Phone: [phone] Urine nitrite detection by a utomated test stripon 10-16-2021 Nitrite Auto test strip Ql (U) Negative Negative [facility] Work Phone: Urine pHon 10-16-2021 pH (U) 5.5 [pH] 0-7.5 [facility] Work Phone: Urine specific gravity measu rementon 10-16-2021 Specific gravity (U) [Rel density] 1.025 1.005-1.025 [facility] Work Phone: Urine urobilinogen measureme nton 10-16-2021 Urobilinogen Ql (U) 0.2 E.U./dL 0-2.0 [facility] Work Phone: [phone] Laboratory - Microbiology an d Antimicrobial susceptibilityon 09-28-2021 S. pyogenes Ag IA Ql (Unsp spec) Negative Negative [facility] Work Phone: COVID-19 (SARS-CoV-2)KEITH (Re f)on 05-07-2021 SARS-CoV-2 (COVID-19) RNA KEITH+probe Ql (Unsp spec) Not detected Normal Not Detected [facility] Comment on above: Order Comment: Oroph aryngeal Result Comment: This nucleic acid amplification test was developed and its performance characteristics determined by [employer]. Nucleic acid amplification tests include RT- PCR and TMA. This test has not been FDA cleared or approved. This test has been authorized by FDA under an Emergency Use Authorization (EUA). This test is only authorized for the duration of time the declaration that circumstances exist justifying the authorization of the emergency use of in vitro diagnostic tests for detection of SARS-CoV-2 virus and/or diagnosis of COVID-19 infection under section 564(b)(1) of the Act, 21 U.S.C. 360bbb-3(b) (1), unless the authorization is terminated or revoked sooner. When diagnostic testing is negative, the possibility of a false negative result should be considered in the context of a patient's recent exposures and the presence of clinical signs and symptoms consistent with COVID-19. An individual without symptoms of COVID-19 and who is not shedding SARS-CoV-2 virus would expect to have a negative (not detected) result in this assay. Performed By: #### C [id number] #### [facility] [address] [place] [address] SKULL COMPLETE MINIMUM OF 4 VIEWSon 01-17-2020 SKULL COMPLETE MINIMUM OF 4 VIEWS MULTIPLE VIEWS OF THE SKULL COMPARISON: [No comparison exams available at the time of dictation.] FINDINGS: The examination fails to demonstrate evidence of a depressed calvarial fracture. No radiopaque foreign bodies are identified. The visualize paranasal sinuses are well pneumatized. Negative skull radiographs do not confirm the absence of an intracranial traumatic abnormality. The need for further evaluation with a CT scan of the head should be determined clinically. IMPRESSION: 1. No radiographic evidence of a depressed calvarial fracture. Report electronically signed by: Kay Amaya MD on January 16, 04:50 PM Final Report Normal [facility] Anastacio 04-03-2019 ALT [Catalytic activity/Vol] 13 U/L Normal <40 [facility] Tasneem 04-03-2019 AST [Catalytic activity/Vol] 43 U/L Normal 15-50 [facility] Acetaminophenon 04-03-2019 Acetaminophen [Mass/Vol] NONE DETECTED Normal 10.0-30.0 [facility] Acetaminophen [Mass/Vol] Duplicate Order Normal 10.0-30.0 [facility] Comment on above: Result Comment: Acce ptable specimen found CORRECTED on 04/03 AT 0428: Result was previously reported as: Specimen inappropriate, please recollect. C trach/N gono/T vag Panelon 04-03-2019 COMMENT Optimal performance is obtained with First Catch urines. Clean catch urine samples have been shown to have reduced sensitivity for the detection of C. trachomatis, N. gonorrhoeae and T. vaginalis using the APTIMA nucleic acid amplification method. Normal [facility] Comment on above: Performed By: #### C TGCTP #### [place] [address] T. vaginalis amp. Not Detected Normal [facility] Comment on above: Performed By: #### C TGCTP #### [place] [address] C. trachomatis amp. Abnormal [facility] Comment on above: Result Comment: DETE CTED In patients in whom the disease is unlikely, additional testing should be considered following a positive result (CDC, MMRW June 2002, Vol.51). If clinically indicated, contact the laboratory within 1 week for repeat testing on this specimen for confirmation or consider collecting and submitting a new sample. Performed By: #### C TGCTP #### [place] [address] Comment Optimal performance is obtained with First Catch urines. Clean catch urine samples have been shown to have reduced sensitivity for the detection of C. trachomatis, N. gonorrhoeae and T. vaginalis using the APTIMA nucleic acid amplification method. Normal [facility] Comment on above: Performed By: #### C TGCTP #### [place] [address] N. gonorrhoeae amp. Not Detected Normal [facility] Comment on above: Performed By: #### C TGCTP #### [place] [address] HIV 1 and HIV 2 Ab/Ag Screen on 04-03-2019 HIV 1 and HIV 2 Ab/Ag Screen Negative Normal NEG [facility] Hepatitis Profileon 04-03-20 19 Hepatitis A Ab, IgM Negative Normal NEG [facility] Hepatitis B Core Ab Negative Normal NEG [facility] Hepatitis B Surface, Ag Negative [facility]ody Negative [facility] 04-03-2019 Reagin Ab RPR Ql (S) Nonreactive Normal NR Cande [facility] Urine Cultureon 04-03-2019 Bacteria identified Cx Nom (U) No growth at 100 CFU/ml or greater Normal [facility] Comment on above: Performed By: #### B MP #### [facility] Laboratory Services Dr. Albaro Flood MD [address] [place] [address] 45662 Acetaminophenon 04-02-2019 Acetaminophen [Mass/Vol] 151.9 Critically high 5.0-20.0 [facility] Comment on above: Performed By: #### B MP #### [facility] Laboratory Services Dr. Albaro Flood MD [address] [place] [address] 45662 Acetaminophen [Mass/Vol] 141.3 Critically high 5.0-20.0 [facility] Comment on above: Performed By: #### A CET/TY #### [facility] Laboratory Services Dr. Albaro Flood MD [address] [place] [address] 45662 Alcohol, Serumon 04-02-2019 Alcohol, Serum <3.0 Normal 0.0-10.0 [facility] Comment on above: Result Comment: Alco hol values less than 10 mg/dL are considered negative. Unconfirmed results should not be used for non-medical purposes. Performed By: #### A LC #### [facility] Laboratory Services Dr. Albaro Flood MD [address] [place] [address] 45662 Arterial Blood Gas Complete (ER Only)on 04-02-2019 Base Excess-Arterial -3.4 mmol/L Abnormal -3.0 to 3.0 So [facility] Comment on above: Performed By: #### B MP #### [facility] Laboratory Services Dr. Albaro Flood MD [address] [place] [address] 45662 Bicarbonate-Arterial 21 mmol/L Low 22- [facility] Comment on above: Performed By: #### B MP #### [facility] Services Dr. Albaro Flood MD [address] [place] [address] 68486 Carboxyhemoglobin BG 1.6 % Normal 0.1-2.5 [facility] Comment on above: Result Comment: Non: 0.05-2.50 Smoker: 5.00-10.0 Toxic: >25 Performed By: #### B MP #### [facility] Services Dr. Albaro Flood MD [address] [place] [address] 01847 Device Room Air Normal [facility] Comment on above: Performed By: #### B MP #### [facility] Services Dr. Albaro Flood MD [address] [place] [address] 98072 FIO2 CANCEL Normal [facility] Comment on above: Performed By: #### B MP #### [facility] Dr. Albaro Flood MD [address] [place] [address] 75782 FIO2 21 % Normal [facility] Comment on above: Performed By: #### B MP #### [facility] Dr. Albaro Flood MD [address] [place] [address] 62004 Glucose [Mass/Vol] 110 mg/dL Normal 70-[address] [facility] Comment on above: Performed By: #### B MP #### [facility] Services Dr. Albaro Flood MD [address] [place] [address] 49102 Hemoglobin (Bld) [Mass/Vol] 13.9 g/dL High 9.5-13.0 [facility] Comment on above: Performed By: #### B MP #### [facility] Services Dr. Albaro Flood MD [address] [place] [address] 71243 Lactic Acid - Arterial BG 4.5 mmol/L Critically high 0.5-1.6 [facility] Comment on above: Performed By: #### B MP #### [facility] Services Dr. Albaro Flood MD [address] [place] [address] 35942 Methemoglobin BG 0.4 % High 0.0-0.3 [facility] Comment on above: Performed By: #### B MP #### [facility] Services Dr. Albaro Flood MD [address] [place] [address] 89628 Normalized Ionized Ca BG 1.24 mmol/L Normal 1.01-1.33 [facility] Comment on above: Performed By: #### B MP #### [facility] Services Dr. Albaro Flood MD [address] [place] [address] 60934 O2 Content 19 mL/dL Normal 17-100 [facility] Comment on above: Performed By: #### B MP #### [facility] Dr. Albaro Flood MD [address] [place] [address] 80998 Oxygen saturation in Blood 96.7 % Normal 96.0-97.0 [facility] Comment on above: Performed By: #### B MP #### [facility] Services Dr. Albaro Flood MD [address] [place] [address] 66246 PCO2 Arterial 37 mm[Hg] Normal 32-53 [facility] Comment on above: Performed By: #### B MP #### [facility] Services Dr. Albaro Flood MD [address] [place] [address] 68595 pH Arterial 7.37 Normal 7.35-7.45 [facility] Comment on above: Performed By: #### B MP #### [facility] Services Dr. Albaro Flood MD [address] [place] [address] 59001 PO2 Arterial 96 mm[Hg] Normal 80-110 [facility] Comment on above: Performed By: #### B MP #### [facility] Services Dr. Albaro Flood MD [address] [place] [address] [phone] (08 Potassium [Moles/Vol] 4.3 mmol/L Normal 3.5-5.1 [facility] Comment on above: Performed By: #### B MP #### [facility] Laboratory Services Dr. Albaro Flood MD [address] [place] [address] 48936 Sodium [Moles/Vol] 142 mmol/L Normal 136-[address] [facility] Comment on above: Performed By: #### B MP #### [facility] Laboratory Services Dr. Albaro Flood MD [address] [place] [address] 26164 Basic Metabolic Panelon - Creatinine [Mass/Vol] 0.855 mg/dL Normal 0.550-1.020 [facility] Comment on above: Performed By: #### B MP #### [facility] Laboratory Services Dr. Albaro Flood MD [address] [place] [address] 67805 GFR/1.73 sq M predicted among non-blacks MDRD (S/P/Bld) [Vol rate/Area] see below Normal [facility] Comment on above: Result Comment: Test Not Performed - Patient is younger than 18. K/DOQI Guideline: Stage 1 >/=90 mL/min/1.73m2 - Not Consistent with CKD Stage 2 60-89 mL/min/1.73m2 - Consistent with Mild CKD Stage 3 30-59 mL/min/1.73m2 - Consistent with Moderate CKD Stage 4 15-29 mL/min/1.73m2 - Consistent with Severe CKD Stage 5 <15 mL/min/1.73m2 - Consistent with Kidney Failure Estimated Glomerular Filtration Rate (eGFR) is a calculated value utilizing the MDRD equation and provides an estimate of renal function. The equation assumes a steady state and should not be used for patients that meet any of the following criteria: - Are younger than 18 or older than 70 - Have rapidly fluctuating kidney function - Are - Have serious comorbid conditions - Have extremes of body size - Have extremes of muscle mass - Have extremes of nutritional status - Are non- or non- - Have normal kidney function Performed By: #### B MP #### [facility] Services Dr. Albaro Flood MD [address] [place] [address] 97306 Calcium [Mass/Vol] 9.6 mg/dL Normal 8.5-10.[address] [facility] Comment on above: Performed By: #### B MP #### [facility] Services Dr. Albaro Flood MD [address] [place] [address] 31687 CO2 [Moles/Vol] 23.0 mmol/L Normal 21.0-32.0 [facility] Comment on above: Performed By: #### B MP #### [facility] Services Dr. Albaro Flood MD [address] [place] [address] 54111 Glucose [Mass/Vol] 104 mg/dL Normal 74-[address] [facility] Comment on above: Performed By: #### B MP #### [facility] Services Dr. Albaro Flood MD [address] [place] [address] 36826 Urea nitrogen [Mass/Vol] 8 mg/dL Normal 7-18 [facility] Comment on above: Performed By: #### B MP #### [facility] Services Dr. Albaro Flood MD [address] [place] [address] 63122 Chloride [Moles/Vol] 107 mmol/L Normal 100-108 [facility] Comment on above: Performed By: #### B MP #### [facility] Services Dr. Albaro Flood MD [address] [place] [address] 86027 Potassium [Moles/Vol] 3.7 mmol/L Normal 3.5-5.1 [facility] Comment on above: Performed By: #### B MP #### [facility] Services Dr. Albaro Flood MD [address] [place] [address] 75624 Sodium [Moles/Vol] 139 mmol/L Normal 136-145 [facility] Comment on above: Performed By: #### B MP #### [facility] Laboratory Services Dr. Albaro Flood MD [address] [place] [address] 32625 C trach/N gono/T vag Panelon 04-02-2019 Specimen Description Urine Normal [facility] Comment on above: Performed By: #### C TGCTP #### Performed at [facility], [address] [place] [address] CBC With Platelet and Differ entialon 04-02-2019 Abs. Basophils 0.06 10*3/uL High 0.00-0.05 [facility] Comment on above: Performed By: #### C BC #### [facility] Laboratory Services Dr. Albaro Flood MD [address] [place] [address] 89431 Abs. Neutrophils 9.74 10*3/uL High 1.82-7.47 [facility] Comment on above: Performed By: #### C BC #### [facility] Laboratory Services Dr. Albaro Flood MD [address] [place] [address] 46688 Basophils/100 WBC (Bld) 0.5 % Normal 0.0-0.6 [facility] Comment on above: Performed By: #### C BC #### [facility] Laboratory Services Dr. Albaro Flood MD [address] [place] [address] 51990 Differential Automated Normal [facility] Comment on above: Performed By: #### C BC #### [facility] Laboratory Services Dr. Albaro Flood MD [address] [place] [address] 45621 Eosinophils (Bld) [#/Vol] 0.03 10*3/uL Normal 0.00-0.32 [facility] Comment on above: Performed By: #### C BC #### [facility] Services Dr. Albaro Flood MD [address] [place] [address] 99843 Eosinophils/100 WBC (Bld) 0.2 % Normal 0.0-3.4 [facility] Comment on above: Performed By: #### C BC #### [facility] Laboratory Services Dr. Albaro Flood MD [address] [place] [address] 64980 Erythrocyte distribution width (RBC) [Ratio] 15.3 % High 12.3-14.6 [facility] Comment on above: Performed By: #### C BC #### [facility] Laboratory Services Dr. Albaro Flood MD [address] [place] [address] 67356 Hematocrit (Bld) [Volume fraction] 39.6 % Normal 33.4-40.4 [facility] Comment on above: Performed By: #### C BC #### [facility] Laboratory Services Dr. Albaro Flood MD [address] [place] [address] 35202 Hemoglobin (Bld) [Mass/Vol] 13.4 g/dL High 10.8-13.3 [facility] Comment on above: Performed By: #### C BC #### [facility] Laboratory Services Dr. Albaro Flood MD [address] [place] [address] 17645 Lymphocytes (Bld) [#/Vol] 2.01 10*3/uL Normal 1.16-3.33 [facility] Comment on above: Performed By: #### C BC #### [facility] Laboratory Services Dr. Albaro Flood MD [address] [place] [address] 44600 Lymphocytes/100 WBC (Bld) 16.1 % Low 18.2-49.8 [facility] Comment on above: Performed By: #### C BC #### [facility] Laboratory Services Dr. Albaro Flood MD [address] [place] [address] 68384 MCH (RBC) [Entitic mass] 27.5 pg Normal 24.8-30.2 [facility] Comment on above: Performed By: #### C BC #### [facility] Services Dr. Albaro Flood MD [address] [place] [address] 16911 MCHC (RBC) [Mass/Vol] 33.8 g/dL Normal 31.5-34.2 [facility] Comment on above: Performed By: #### C BC #### [facility] Dr. Albaro Flood MD [address] [place] [address] 34187 MCV (RBC) [Entitic vol] 81.3 fL Normal 76.9-90.6 [facility] Comment on above: Performed By: #### C BC #### [facility] Dr. Albaro Flood MD [address] [place] [address] 76866 Monocytes (Bld) [#/Vol] 0.55 10*3/uL Normal 0.19-0.72 [facility] Comment on above: Performed By: #### C BC #### [facility] Dr. Albaro Flood MD [address] [place] [address] 62108 Monocytes/100 WBC (Bld) 4.4 % Normal 4.1-10.9 [facility] Comment on above: Performed By: #### C BC #### [facility] Dr. Albaro Flood MD [address] [place] [address] 11664 Neutrophils/100 WBC (Bld) 78.2 % High 39.0-73.6 [facility] Comment on above: Performed By: #### C BC #### [facility] Dr. Albaro Flood MD [address] [place] [address] 43159 Platelet mean volume (Bld) [Entitic vol] 11.2 fL Normal 9.6-11.7 [facility] Comment on above: Performed By: #### C BC #### [facility] Dr. Albaro Flood MD [address] [place] [address] 41995 Platelets (Bld) [#/Vol] 312 10*3/uL Normal 194-345 [facility] Comment on above: Performed By: #### C BC #### [facility] Laboratory Services Dr. Albaro Flood MD [address] [place] [address] 66041 RBC (Bld) [#/Vol] 4.87 10*6/uL Normal 3.93-4.90 [facility] Comment on above: Performed By: #### C BC #### [facility] Laboratory Services Dr. Albaro lFood MD [address] [place] [address] 32510 WBC (Bld) [#/Vol] 12.5 10*3/uL High 4.2-9.4 [facility] Comment on above: Performed By: #### C BC #### [facility] Laboratory Services Dr. Albaro Flood MD [address] [place] [address] 50737 CHEST PORTABLE FRONTAL 1Von 04-02-2019 CHEST PORTABLE FRONTAL 1V PROCEDURE: CHEST PORTABLE FRONTAL 1V CLINICAL: PSYCH Special Instructions: = N TECHNIQUE: Single portable frontal view of the chest. 04-02-2019, 03:57 AM COMPARISON: No prior studies available for comparison. FINDINGS: The cardiomediastinal silhouette is not enlarged. Lung barbosa clear without focal consolidation, pulmonary vascular congestion or evidence of pleural effusion. IMPRESSION: Clear lungs. RECOMMENDATION: PA and lateral views may be of benefit for a more thorough evaluation of the thorax when the patient's condition permits. Electronically signed by: Bandar Diego M.D. Date/time: 04-02-2019, 04:03 AM Final Report Normal [facility] Hepatic Function Panelon ALP [Catalytic activity/Vol] 138 U/L High 45-117 [facility] Comment on above: Performed By: #### H FP #### [facility] Laboratory Services Dr. Albaro Flood MD [address] [place] [address] 85652 Bilirubin [Mass/Vol] 0.3 mg/dL Normal 0.2-1.0 [facility] Comment on above: Performed By: #### H FP #### [facility] Dr. Albaro Flood MD [address] [place] [address] 37267 Protein [Mass/Vol] 7.6 g/dL Normal 6.4-8.2 [facility] Comment on above: Performed By: #### H FP #### [facility] Dr. Albaro Flood MD [address] [place] [address] 66154 ALT [Catalytic activity/Vol] 12 U/L Low 13-61 [facility] Comment on above: Performed By: #### H FP #### [facility] Dr. Albaro Flood MD [address] [place] [address] 38717 AST [Catalytic activity/Vol] 12 U/L Low 15-37 [facility] Comment on above: Performed By: #### H FP #### [facility] Dr. Albaro Flood MD [address] [place] [address] 31221 Bilirubin.direct [Mass/Vol] 0.1 mg/dL Normal 0.0-0.2 [facility] Comment on above: Performed By: #### H FP #### [facility] Dr. Albaro Flood MD [address] [place] [address] 40180 Albumin [Mass/Vol] 4.6 g/dL Normal 3.4-5.0 [facility] Comment on above: Performed By: #### H FP #### [facility] Dr. Albaro Flood MD [address] [place] [address] 37807 Magnesiumon 04-02-2019 Magnesium [Mass/Vol] 2.2 mg/dL Normal 1.8-2.4 [facility] Comment on above: Performed By: #### B MP #### [facility] Dr. Albaro Flood MD [address] [place] [address] 45662 POCT HCG, Urine Qualitativeo n 04-02-2019 Beta HCG ( test) Ql (U) Negative Normal NEG [facility] Comment: First morning urine is the specimen of choice for urine test. False negative results can occur when random urine specimens are tested. A serum test is recommended if results do not correlate with the patient's clinical condition. Normal [facility] Prothrombin Timeon 9 INR Coag (PPP) [Relative time] 1.2 {INR} Normal 0.9-1.2 [facility] Comment on above: Result Comment: Note : The INR is a therapeutic drug monitoring measurement applicable only to patients who are STABILIZED on anticoagulant therapy. Therapeutic Ranges: Low Intensity Therapy 1.5 - 2.0 Mod. Intensity Therapy 2.0 - 3.0 High Intensity Therapy (1) 2.5 - 3.5 High Intensity Therapy (2) 3.0 - 4.0 Performed By: #### B MP #### [facility] Laboratory Services Dr. Albaro Flood MD [address] [place] [address] 45662 PT Coag (PPP) [Time] 15.6 s High 11.7-14.7 [facility] Comment on above: Performed By: #### B MP #### [facility] Laboratory Services Dr. Albaro Flood MD [address] [place] [address] 45662 RPRon 04-02-2019 Reagin Ab RPR Ql (S) Non Reactive Normal Non Reactive [facility] Comment on above: Performed By: #### B MP #### [facility] Laboratory Services Dr. Albaro Flood MD [address] [place] [address] 45662 Salicylateon 04-02-2019 Salicylate 2.1 mg/dL Normal 2.0-29.9 [facility] Comment on above: Performed By: #### S AL #### [facility] Laboratory Services Dr. Albaro Flood MD [address] [place] [address] 84333 Serum Preg-Qualitativeon Serum Preg-Qualitative Negative Normal Negative So [facility] Comment on above: Performed By: #### B SS #### [facility] Laboratory Services Dr. Albaro Flood MD [address] [place] [address] 34687 TSHon 04-02-2019 TSH Qn 1.120 m[iU]/L Normal 0.463-3.980 [facility] Comment on above: Performed By: #### T SH #### [facility] Laboratory Services Dr. Albaro Flood MD [address] [place] [address] 49686 UA Micro Reflex to Cultureon 04-02-2019 Red Blood Cells (Urine) 6 [HPF] High 0-5 [facility] Comment on above: Performed By: #### B MP #### [facility] Laboratory Services Dr. Albaro Flood MD [address] [place] [address] 61411 Bacteria LM.HPF (Urine sed) [#/Area] None Normal None [facility] Comment on above: Performed By: #### B MP #### [facility] Dr. Albaro Flood MD [address] [place] [address] 38073 Epithelial cells.squamous LM.HPF (Urine sed) [#/Area] 9 [HPF] High 0-4 [facility] Comment on above: Performed By: #### B MP #### [facility] Dr. Albaro Flood MD [address] [place] [address] 39580 Hyaline Cast 4 Normal 0-5 [facility] Comment on above: Performed By: #### B MP #### [facility] Dr. Albaro Flood MD [address] [place] [address] 19593 White Blood Cells (Urine) 9 [HPF] High 0-4 [facility] Comment on above: Performed By: #### B MP #### [facility] Dr. Albaro Flood MD [address] [place] [address] 87130 Appearance (U) Clear Normal Clear [facility] Comment on above: Performed By: #### B MP #### [facility] Laboratory Services Dr. Albaro Flood MD [address] [place] [address] 92073 Bilirubin [Mass/Vol] Negative Normal Negative [facility] Comment on above: Performed By: #### B MP #### [facility] Laboratory Services Dr. Albaro Flood MD [address] [place] [address] 32367 Blood (Urine) Negative Normal Negative [facility] Comment on above: Performed By: #### B MP #### [facility] Laboratory Services Dr. Albaro Flood MD [address] [place] [address] 76773 Color (U) Yellow Normal Yellow [facility] Comment on above: Performed By: #### B MP #### [facility] Laboratory Services Dr. Albaro Flood MD [address] [place] [address] 59907 Glucose [Mass/Vol] Negative Normal Negative [facility] Comment on above: Performed By: #### B MP #### [facility] Laboratory Services Dr. Albaro Flood MD [address] [place] [address] 76115 Ketones Ql (U) Negative Normal Negative [facility] Comment on above: Performed By: #### B MP #### [facility] Laboratory Services Dr. Albaro Flood MD [address] [place] [address] 34256 Leukocyte esterase Test strip Ql (U) Trace Abnormal Negative [facility] Comment on above: Performed By: #### B MP #### [facility] Laboratory Services Dr. Albaro Flood MD [address] [place] [address] 60744 Nitrite Ql (U) Negative Normal Negative [facility] Comment on above: Performed By: #### B MP #### [facility] Laboratory Services Dr. Albaro Flood MD [address] [place] [address] 63068 pH (U) 6.5 [pH] Normal <=7.5 [facility] Comment on above: Performed By: #### B MP #### [facility] Dr. Albaro Flood MD [address] [place] [address] 34349 Protein (U) [Mass/Vol] Negative Normal Negative So [facility] Comment on above: Performed By: #### B MP #### [facility] Dr. Albaro Flood MD [address] [place] [address] 73316 Specific gravity (U) [Rel density] 1.012 Normal 1.005-1.025 [facility] Comment on above: Performed By: #### B MP #### [facility] Dr. Albaro Flood MD [address] [place] [address] 32803 Urobilinogen Qn (U) 0.2 Normal 0-2.0 [facility] Comment on above: Performed By: #### B MP #### [facility] Dr. Albaro Flood MD [address] [place] [address] 25291 Urine Type Void Normal [facility] Comment on above: Performed By: #### B MP #### [facility] Dr. Albaro Flood MD [address] [place] [address] 18196 Urine Drugs of Abuse Panelon 04-02-2019 Message for Urine Drugs see below Normal [facility] Comment on above: Result Comment: This method provides only a preliminary analytical test result. A more specific alternative method should be used to confirm a positive result. None Detected indicates that either the urine sample does not contain drugs in that class or that the drug concentration is below the cutoff level and therefore not detected. Unconfirmed screening results should not be used for non-medical purposes. Performed By: #### B MP #### [facility] Dr. Albaro Flood MD [address] [place] [address] [id number] UR Buprenorphine Scrn None Detected Normal [facility] Comment on above: Result Comment: Cuto ff: 5 ng/mL Performed By: #### B MP #### [facility] Dr. Albaro Flood MD [facility] [address] [place] [address] [id number] Urine Amphetamine Scrn None Detected Normal [facility] Comment on above: Result Comment: Cuto ff: 500 ng/mL Performed By: #### B MP #### [facility] Dr. Albaro Flood MD [address] [place] [address] [id number] Urine Cocaine Scrn None Detected Normal [facility] Comment on above: Result Comment: Cuto ff: 150 ng/mL Performed By: #### B MP #### [facility] Dr. Albaro Flood MD [address] [place] [address] [id number] Urine Heroin (6-AM) Scrn None Detected Normal [facility] Comment on above: Result Comment: Cuto ff: 10 ng/mL Performed By: #### B MP #### [facility] Services Dr. Albaro Flood MD [address] [place] [address] [phone] Urine Barbiturate Scrn None Detected Normal [facility] Comment on above: Result Comment: Cuto ff: 200 ng/mL Performed By: #### B MP #### [facility] Dr. Albaro Flood MD [address] [place] [address] 16453 Urine Benzo Scrn None Detected Normal [facility] Comment on above: Result Comment: Cuto ff: 200 ng/mL Performed By: #### B MP #### [facility] Dr. Albaro Flood MD [address] [place] [address] [phone] Urine Cannabinoid Scrn UNCONF. POS Abnormal S [facility] Comment on above: Result Comment: Cuto ff: 50 ng/mL Performed By: #### B MP #### [facility] Dr. Albaro Flood MD [address] [place] [address] [id number] Urine Methadone Scrn None Detected Normal [facility] Comment on above: Result Comment: Cuto ff: 150 ng/mL Performed By: #### B MP #### [facility] Dr. Albaro Flood MD [address] [place] [address] [id number] Urine Oxycodone Scrn None Detected Normal [facility] Comment on above: Result Comment: Cuto ff: 100 ng/mL Performed By: #### B MP #### [facility] Dr. Albaro Flood MD [address] [place] [address] [phone] Urine Opiate Scrn None Detected Normal [facility] Comment on above: Result Comment: Cuto ff: 300 ng/mL Performed By: #### B MP #### [facility] Dr. Albaro Flood MD [address] [place] [address] [phone] Urine Tricyclic Screenon Urine Tricyclic Screen None Detected Normal [facility] Comment on above: Result Comment: Cuto ff: 1000 ng/mL Performed By: #### B MP #### [facility] Dr. Albaro Flood MD [address] [place] [address] [phone] Vitamin B12on 04-02-2019 Cobalamin (Vitamin B12) [Mass/Vol] 164 pg/mL Low [id number] [facility] Comment on above: Result Comment: Plea se note new reference range Performed By: #### V B12 #### [facility] Dr. Albaro Flood MD [address] [place] [address] [id number] [id number] Laboratory - Microbiology an d Antimicrobial susceptibility Bacteria identified Cx Nom (U) [facility] Work Phone: Vital Signs Date Time Vital Sign Value Performing Clinician Facility 01-12-2024 14:41-0400 Body height 162.56 cm DO Doctor None [facility] 01-12-2024 14:41-0400 Body mass index (BMI) [Ratio] 14.8 kg/m2 DO Doctor None [facility] 01-12-2024 14:41-0400 Body temperature 98.2 [degF] DO Doctor None [facility] 01-12-2024 14:41-0400 Body weight 39.2 kg DO Doctor None [facility] 01-12-2024 14:41-0400 Diastolic blood pressure 78 mm[Hg] DO Doctor None [facility] 01-12-2024 14:41-0400 Heart rate 88 /min DO Doctor None [facility] 01-12-2024 14:41-0400 Respiratory rate 18 /min DO Doctor None [facility] 01-12-2024 14:41-0400 SaO2% (BldA) [Mass fraction] 100 % DO Doctor None [facility] 01-12-2024 14:41-0400 Systolic blood pressure 123 mm[Hg] DO Doctor None [facility] 10-29-2023 18:08-0500 Body temperature 99.6 [degF] DO Doctor None [facility] 10-29-2023 18:08-0500 Body weight 40.8 kg DO Doctor None [facility] 10-29-2023 18:08-0500 Diastolic blood pressure 84 mm[Hg] DO Doctor None [facility] 10-29-2023 18:08-0500 Heart rate 96 /min DO Doctor None [facility] 10-29-2023 18:08-0500 Respiratory rate 16 /min DO Doctor None [facility] 10-29-2023 18:08-0500 SaO2% (BldA) [Mass fraction] 98 % DO Doctor None [facility] 10-29-2023 18:08-0500 Systolic blood pressure 129 mm[Hg] DO Doctor None [facility] 09-17-2023 22:40-0500 Diastolic blood pressure 60 mm[Hg] DO Doctor None [facility] 09-17-2023 22:40-0500 Heart rate 71 /min DO Doctor None [facility] 09-17-2023 22:40-0500 Respiratory rate 17 /min DO Doctor None [facility] 09-17-2023 22:40-0500 SaO2% (BldA) [Mass fraction] 98 % DO Doctor None [facility] 09-17-2023 22:40-0500 Systolic blood pressure 98 mm[Hg] DO Doctor None [facility] 09-17-2023 21:46-0500 Body height 154.94 cm DO Doctor None [facility] 09-17-2023 21:46-0500 Body mass index (BMI) [Ratio] 17 kg/m2 DO Doctor None [facility] 09-17-2023 21:46-0500 Body temperature 97.7 [degF] DO Doctor None [facility] 09-17-2023 21:46-0500 Body weight 41 kg DO Doctor None [facility] 07-02-2023 22:37-0400 Body height 154.9 cm Nunu Gil MD Work Phone: [facility] 07-02-2023 22:36-0400 Body temperature 98.2 [degF] Nunu Gil MD Work Phone: [facility] 07-02-2023 22:36-0400 Diastolic blood pressure 74 mm[Hg] Nunu Gil MD Work Phone: [facility] 07-02-2023 22:36-0400 Heart rate 104 /min Nunu Gil MD Work Phone: [facility] 07-02-2023 22:36-0400 Respiratory rate 18 /min Nunu Gil MD Work Phone: [facility] 07-02-2023 22:36-0400 SaO2% (BldA) [Mass fraction] 98 % Nunu Gil MD Work Phone: [facility] 07-02-2023 22:36-0400 Systolic blood pressure 119 mm[Hg] Nunu Gil MD Work Phone: [facility] 02-20-2022 14:14-0400 Body temperature 98.1 [degF] DO Doctor None [facility] Work Phone: 02-20-2022 14:14-0400 Body weight 38.9 kg DO Doctor None [facility] Work Phone: 02-20-2022 14:14-0400 Diastolic blood pressure 77 mm[Hg] DO Doctor None [facility] Work Phone: 02-20-2022 14:14-0400 Heart rate 82 /min DO Doctor None [facility] Work Phone: 02-20-2022 14:14-0400 SaO2% (BldA) [Mass fraction] 98 % DO Doctor None [facility] Work Phone: 02-20-2022 14:14-0400 Systolic blood pressure 106 mm[Hg] DO Doctor None [facility] Work Phone: 01-20-2022 11:12-0400 Body height 152 cm DO Doctor None [facility] Work Phone: 01-20-2022 11:12-0400 Body mass index (BMI) [Percentile] Per age and sex 7 % DO Doctor None [facility] Work Phone: 01-20-2022 11:12-0400 Body mass index (BMI) [Ratio] 18 kg/m2 DO Doctor None [facility] Work Phone: 01-20-2022 11:12-0400 Body temperature 98.3 [degF] DO Doctor None [facility] Work Phone: 01-20-2022 11:12-0400 Body weight 41.6 kg DO Doctor None [facility] Work Phone: 01-20-2022 11:12-0400 Diastolic blood pressure 84 mm[Hg] DO Doctor None [facility] Work Phone: 01-20-2022 11:12-0400 Heart rate 82 /min DO Doctor None [facility] Work Phone: 01-20-2022 11:12-0400 Respiratory rate 16 /min DO Doctor None [facility] Work Phone: 01-20-2022 11:12-0400 SaO2% (BldA) [Mass fraction] 99 % DO Doctor None [facility] Work Phone: 01-20-2022 11:12-0400 Systolic blood pressure 120 mm[Hg] DO Doctor None [facility] Work Phone: 11-26-2021 13:32-0400 Body height 152.4 cm DO Doctor None [facility] Work Phone: 11-26-2021 13:32-0400 Body mass index (BMI) [Percentile] Per age and sex 8.1 % DO Doctor None [facility] Work Phone: 11-26-2021 13:32-0400 Body mass index (BMI) [Ratio] 18.1 kg/m2 DO Doctor None [facility] Work Phone: 11-26-2021 13:32-0400 Body weight 42 kg DO Doctor None [facility] Work Phone: 11-26-2021 13:32-0400 Diastolic blood pressure 81 mm[Hg] DO Doctor None [facility] Work Phone: 11-26-2021 13:32-0400 Heart rate 71 /min DO Doctor None [facility] Work Phone: 11-26-2021 13:32-0400 Respiratory rate 16 /min DO Doctor None [facility] Work Phone: 11-26-2021 13:32-0400 SaO2% (BldA) [Mass fraction] 100 % DO Doctor None [facility] Work Phone: 11-26-2021 13:32-0400 Systolic blood pressure 119 mm[Hg] DO Doctor None [facility] Work Phone: 11-03-2021 14:52-0500 Body height 152.4 cm DO Doctor None [facility] Work Phone: 11-03-2021 14:52-0500 Body mass index (BMI) [Percentile] Per age and sex 11.9 % DO Doctor None [facility] Work Phone: 11-03-2021 14:52-0500 Body mass index (BMI) [Ratio] 18.5 kg/m2 DO Doctor None [facility] Work Phone: 11-03-2021 14:52-0500 Body temperature 98.8 [degF] DO Doctor None [facility] Work Phone: 11-03-2021 14:52-0500 Body weight 43.1 kg DO Doctor None [facility] Work Phone: 11-03-2021 14:52-0500 Diastolic blood pressure 73 mm[Hg] DO Doctor None [facility] Work Phone: 11-03-2021 14:52-0500 Heart rate 69 /min DO Doctor None [facility] Work Phone: 11-03-2021 14:52-0500 Respiratory rate 16 /min DO Doctor None [facility] Work Phone: 11-03-2021 14:52-0500 SaO2% (BldA) [Mass fraction] 99 % DO Doctor None [facility] Work Phone: 11-03-2021 14:52-0500 Systolic blood pressure 107 mm[Hg] DO Doctor None [facility] Work Phone: 09-28-2021 14:18-0500 Body height 152.4 cm DO Doctor None [facility] Work Phone: 09-28-2021 14:18-0500 Body mass index (BMI) [Percentile] Per age and sex 8.4 % DO Doctor None [facility] Work Phone: 09-28-2021 14:18-0500 Body mass index (BMI) [Ratio] 18.1 kg/m2 DO Doctor None [facility] Work Phone: 09-28-2021 14:18-0500 Body temperature 98.4 [degF] DO Doctor None [facility] Work Phone: 09-28-2021 14:18-0500 Body weight 42.2 kg DO Doctor None [facility] Work Phone: 09-28-2021 14:18-0500 Diastolic blood pressure 72 mm[Hg] DO Doctor None [facility] Work Phone: 09-28-2021 14:18-0500 Heart rate 87 /min DO Doctor None [facility] Work Phone: 09-28-2021 14:18-0500 Respiratory rate 18 /min DO Doctor None [facility] Work Phone: 09-28-2021 14:18-0500 SaO2% (BldA) [Mass fraction] 100 % DO Doctor None [facility] Work Phone: 09-28-2021 14:18-0500 Systolic blood pressure 108 mm[Hg] DO Doctor None [facility] Work Phone: Encounters Encounter Date Encounter Type Care Provider Facility Start: 02-04-2024 End: 02-04-2024 ambulatory RASHEED~[id number] CORNELL IQBAL [facility] Start: 01-12-2024 End: 01-13-2024 ambulatory Yoana Martinez Facility:[facility] Start: 01-12-2024 Non-patient / Non-visit DO Doctor No ne [facility] (ACUTE) Work Phone: Start: 11-19-2023 End: 11-19-2023 ambulatory TAD~[id number] MOHAMUD MISHRA [facility] Start: 10-29-2023 End: 10-30-2023 ambulatory Mak Molinalone Facility:[facility] Start: 10-29-2023 End: 10-29-2023 ambulatory DO Doctor None [facility] Work Phone: Start: 10-29-2023 End: 10-29-2023 Non-patient / Non-visit DO Doctor None [facility] Start: 10-29-2023 End: 10-29-2023 Patient encounter procedure DO Doctor None [facility] Work Phone: Start: 09-28-2023 End: 09-28-2023 Subsequent hospital visit by physician Diamante Castrejon APRN Work Phone: [facility] Comment on above: Vomiting, unspecifie d vomiting type, unspecified whether nausea present; Chills Start: 09-28-2023 End: 09-28-2023 ambulatory DIAMANTE~[id number] LUCÍA CASTREJON DIAMANTE [facility] Start: 09-17-2023 End: 09-18-2023 Emergency department patient visit Gertrudis Bates Facility:[facility] Start: 09-17-2023 End: 09-17-2023 Emergency department patient visit DO Doctor None [facility] Work Phone: Start: 07-03-2023 End: 07-03-2023 ambulatory LUIS ANGEL OLIVAS [facility] Start: 07-03-2023 End: 07-03-2023 Emergency department patient visit NUNU GIL Facility:[facility] Start: 07-02-2023 End: 07-02-2023 Emergency department patient visit Nunu Gil MD Work Phone: [facility] [place] Start: 02-20-2022 End: 02-20-2022 Patient encounter procedure DO Doctor None [facility] ([facility]) Start: 02-20-2022 End: 02-20-2022 Patient encounter procedure DO Doctor None [facility] Start: 01-20-2022 End: 01-20-2022 Patient encounter procedure DO Doctor None [facility] Start: 11-26-2021 End: 11-26-2021 Patient encounter procedure DO Doctor None [facility] Start: 11-03-2021 End: 11-03-2021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
[2024-04-13 18:59] LABS: Bilirubin Urine NEGATIVE (NEGATIVE); Blood Urine NEGATIVE (NEGATIVE); Clarity Urine CLEAR (CLEAR); Color Urine LT. YELLOW (YELLOW); Glucose Urine UA NEGATIVE (NEGATIVE); Ketones Urine NEGATIVE (NEGATIVE); Leukocyte Esterase Urine SMALL (NEGATIVE); Nitrite Urine NEGATIVE (NEGATIVE); Protein Urine NEGATIVE (NEG/TRACE); Specific Gravity Urine <=1.005 (1.005-1.025); Urine Microscopic Indicated YES; Urobilinogen Urine 0.2 EU/dL (0.2-1.0)
[2024-04-13 19:08] LABS: Bacteria Urine MODERATE #/HPF (NONE SEEN); Cast Seen? NONE SEEN #/LPF (NONE SEEN); Crystals Seen? None Seen #/HPF (None Seen); Mucus Urine SMALL (NONE SEEN); RBC Urine 0-2 #/HPF (0-2); Squamous Epithelial Cell Urine MANY #/LPF (NONE/RARE); Urine Culture Indicated YES
[2024-04-16 07:08] LABS: Trich vag by NAA Negative (Negative)
== END 2024-04-13 17:44 | disposition home or self-care (01) ==
LOC: LAB 17:43
PROVIDERS: PCP Nurse Practitioner; Visit Provider Nurse Practitioner
DX: R35.0 Frequency of micturition (principal)
CPT/HCPCS: 81001; 87086; 87491; 87591; 87661